=== PATIENT | male | born 1965 | race Caucasian/White ===

== ENCOUNTER 2024-08-19 04:38 | Inpatient (IN) | payer OTHER, SELFPAY ==
[2024-08-18 23:51] VITALS: BP 170/86
[2024-08-19] VITALS (15 sets, daily range): BP systolic 120–150; BP diastolic 65–87; BMI 28.0; BMI 27.5; BMI 29.2
[2024-08-19 00:32] LABS: Urine Albumin Trace (Neg - Trace); Urine Bilirubin Negative (Negative); Urine Character Clear (Clear); Urine Color Amber; Urine Glucose Negative (Negative); Urine Ketone 2+ (Negative); Urine Leukocyte Negative (Negative); Urine Nitrite Negative (Negative); Urine Occult Blood Negative (Negative); Urine Urobilinogen 2+ (Neg - 1+)
[2024-08-19 00:37] LABS: ALT (SGPT) 59 U/L (0-50); AST (SGOT) 43 U/L (17-59); Albumin 4.3 g/dl (3.5-5.0); Alkaline Phosphatase 119 U/L (38-126); Blood Urea Nitrogen 25 mg/dl (9-20); Calcium 9.7 mg/dl (8.4-10.2); Carbon Dioxide 28 mmol/L (22-30); Chloride 94 mmol/L (98-107); Glucose 152 mg/dl (70-99); Potassium 4.8 mmol/L (3.5-5.1); Sodium 132 mmol/L (135-145); Total Bilirubin 2.9 mg/dl (0.2-1.3); Total Protein 7.4 g/dl (6.3-8.2); eGFR > 60.00
[2024-08-19 00:38] LABS: % Basophils 0.2 % (0-2); % Eosinophils 0.1 % (0-6); % Immature Granulocytes 1.5 % (0-0.5); % Lymphocytes 7.9 % (20.5-51.1); % Monocytes 10.7 % (1.7-9.3); % Neutrophils 79.6 % (42.2-75.2); Absolute Immature Granulocytes 0.1 10^3/uL (0-0.05); Absolute Lymphocytes 0.7 10^3/uL (1.2-3.4); Absolute Neutrophils 7.2 10^3/uL (1.4-6.5); Hematocrit 41.4 % (39.0-52.0); Hemoglobin 14.7 g/dL (13.0-18.0); Mean Corp Hgb Conc. 35.5 g/dL (33.0-37.0); Mean Corpuscular Hgb 31.6 pg (27.0-31.0); Nucleated Red Blood Cells % 0 % (-); Platelet Count 124 10^3/uL (130-400); Red Blood Cell Count 4.65 10^6/uL (4.70-6.10); Red Cell Dist. Width 11.8 % (11.5-14.5); White Blood Cell Count 9.1 10^3/uL (4.8-10.8)
[2024-08-19 02:02] LABS: Lipase 46 U/L (23-300)
--- NOTE | 2024-08-19 02:11 | ED.GENMED ---
History of Present Illness
General
Chief Complaint: Abdominal Pain
Source: patient
Exam Limitations: none
Time Seen by Provider: 08/19/24 01:10
History of Present Illness
History of Present Illness:
This is a 59 year old male that comes in with c/o abd pain. States that this started at 8am tonight. States that he tried to make himself vomit but he didn't vomit. States that he had eaten a candy cane and grape juice and then the pain started.
States that he tried Pepto, Yogurt, Lemon juice and nothing helped. States that he was nauseated and has urinary burning. Denies any fever, chills, chest pain, SOB, vomiting, diarrhea, headache, dizziness.
Past History
Past History
ED Past Medical History: Psychiatric (Bipolar, ) and Other (Hep C, Renal calculus, Cirrhosis of the liver)
ED Past Surgical History: None
Social History
Tobacco: Smoker
Alcohol: None
Drug: Other (Amphetamines)
Personal: Single
Living: with family
Review of Systems
Review of Systems
All Other Systems: ROS reviewed and negative except as documented in HPI and ROS
Constitutional: Reports no symptoms; Denies fever or chills
EENT: Reports no symptoms
Respiratory: Reports no symptoms; Denies cough or trouble breathing
Cardiac: Reports no symptoms; Denies chest pain
ABD/GI: Reports abdominal pain and nausea; Denies vomiting or diarrhea
: Reports no symptoms; Denies dysuria or urgency
Musculoskeletal: Reports no symptoms
Skin: Reports no symptoms
Neurological: Reports no symptoms; Denies dizzy or headache
Psychiatric: Reports no symptoms
Phy Exam
General Physical Exam
General Presentation: mild distress
General age: appears stated age
General Skin: warm and dry
General Habitus: normal
General Mental: alert
General Hydration: appears well hydrated
ENT Exam
ENT Exam: TM's normal, pharynx normal and neck supple
Eye Exam
Eye Exam: EOMI
Cardiovascular Exam
Cardiovascular Exam: regular rate/rhythm, no edema, no murmur and normal peripheral pulses
Pulmonary Exam
Pulmonary Exam: lungs clear, no respiratory distress, no rales, chest non tender, no crackles, no rhonchi, no wheezing and no cough
Gastrointestinal Exam
Gastrointestinal Exam: normal bowel sounds, soft, no organomegaly, no pulsatile mass and tender (Right sided, epigastric and mid abd tenderness with palpation)
Musculoskeletal Exam
Musculoskeletal Exam: full ROM and no edema
Skin Exam
Skin Exam: normal color, warm/dry, no rash and no petechia
Psychiatric Exam
Psychiatric Exam: normal mood/affect
Course
Orders/Labs/Results
Orders:
Orders
08/18/24 23:54
Complete Blood Count/With Diff Urgent
Comprehensive Metabolic Panel Urgent
Urinalysis Urgent
Date Specimen was Collected: 08/18/24
Time Specimen was Collected: 23:54
08/19/24 00:03
Lipase Urgent
Comment: ADDED
08/19/24 01:12
Add On- LAB Urgent
Tests Added?: Lipase
08/19/24 01:21
Electrocardiogram (*1) Urgent
Reason for Study: Abdominal Pain
EKG- Treatment ONCE
08/19/24 01:54
Pantoprazole [Protonix IV] 40 mg .ROUTE .STK-MED ONE
Sucralfate Suspension [Carafate Suspension] 1 gm .ROUTE .STK-MED ONE
08/19/24 02:12
CT Abd/pelvis W Iv Cont Urgent
Comment:
Reason For Exam: miD AND RIGHT SIDED ABD PAIN
0.9% Sodium Chloride 1000 ml [Nss] 1,000 ml IV BOLUS
Pantoprazole [Protonix IV] 40 mg IV NOW STA
Sucralfate Suspension [Carafate Suspension] 1 gm PO NOW STA
08/19/24 02:16
Ondansetron Injectable [Zofran] 4 mg IV NOW STA
08/19/24 02:17
Ketorolac [Toradol] 30 mg IV NOW STA
08/19/24 03:04
HYDROmorphone [Dilaudid] 1 mg IV NOW STA
Abnormal Lab Results
08/19/24
00:03
RBC 4.65 L 10^6/uL
(4.70-6.10)
MCH 31.6 H pg
(27.0-31.0)
Plt Count 124 L 10^3/uL
(130-400)
Abs Immat Gran (auto) 0.1 H 10^3/uL
(0-0.05)
Absolute Neuts (auto) 7.2 H 10^3/uL
(1.4-6.5)
Absolute Lymphs (auto) 0.7 L 10^3/uL
(1.2-3.4)
Absolute Monos (auto) 1.0 H 10^3/uL
(0.1-0.6)
Immature Gran % 1.5 H %
(0-0.5)
Neutrophils % 79.6 H %
(42.2-75.2)
Lymphocytes % 7.9 L %
(20.5-51.1)
Monocytes % 10.7 H %
(1.7-9.3)
Sodium 132 L mmol/L
(135-145)
Chloride 94 L mmol/L
(98-107)
BUN 25 H mg/dl
(9-20)
Glucose 152 H mg/dl
(70-99)
Total Bilirubin 2.9 H mg/dl
(0.2-1.3)
ALT 59 H U/L
(0-50)
Urine Ketones 2+ A
(Negative)
Urine Urobilinogen 2+ A
(Neg - 1+)
08/19/24 00:03
08/19/24 00:03
Thrombocytopenia, Sodium slightly low. Chloride low. Dehydration. Hyperglycemia. Total yahaira elevation. AST mildly elevated. Urine negative for infection. Lipase normal at 46,
Vital Signs
Initial and Last Documented VS:
Initial Vital Signs
Temp Pulse Resp BP Pulse Ox
98.7 F 84 26 170/86 100
08/18/24 23:51 08/18/24 23:51 08/18/24 23:51 08/18/24 23:51 08/18/24 23:51
Last Documented Vital Signs
Temp Pulse Resp BP Pulse Ox
98.7 F 88 20 135/80 94
08/18/24 23:51 08/19/24 00:00 08/19/24 00:00 08/19/24 00:57 08/19/24 02:30
Human Resources Training Manager consulted with Physician
Human Resources Training Manager consulted with physician?: Yes
Name of Physician Consulted: Dr. Yoder
MDM/Problems Addressed
Differential Diagnosis Includes:
Gastritis, Renal calculus, Appendicitis, Gallbladder disease
MDM/Problems Addressed:
This is a 59 year old male that comes in with c/o abd pain. States that this started yesterday morning after eating a candy cane and Grape juice.
Will check labs. Urine, CT scan, Give IV fluids and Protonix and Carafate.
Back into see patient. Explained that he would be admitted as he has acute cholecystitis and there is possible Thrombus in the distal portal vein. Dr. Holland and Hospitalist notified. Will put Dr. Holland on consult.
Chronic conditions affecting care:
NA
Acute Exacerbation and/or Progression of Chronic Illness:
NA
*Radiology
Radiology exam reviewed: radiology read reviewed (CT night hawk=Findings compatible with acute cholecystitis, with wall thickening and pericholecystic fluid. Additional likely filling defect within the distal portal vein with Extension into the
bilateral main branches, concerning for thrombosis. Tubular filling defect within segment 8, may ), all reviewed NAD by ED Provider (CT cont- may represent additional site of portal vein thrombosis. with areas of abnormal enhancement, which may be
perfusional, but recommend further workup to exclude underlying mass and attention on follow-up. No bowel obstruction. Normal appendix. NO obstructive uropathy. Cirrhotic appearing) and other (CT cont- Cirrhotic appearing liver. No abdominal aortic
aneurysm. No acute osseous abnormality. No acute abnormality within the visualized lungs. No acute abnormality within the visualized soft tissues. )
*Pulse Oximetry
Patient hypoxic: no
*EKG
Interpreted by ED Provider?: Yes
Heart Rate: 75
Rate: normal
Rhythm: sinus
[place]: normal axis
Interval: normal interval
QRS Pattern: normal QRS
Ischemia: no ischemia
*Subsystems Engineer Interpretation
Rate: Subsystems Engineer- N/A
*Critical Care Note
Total Time (30-74mins, 75-104mins- exclusive of procedures): Not Applicable
ED Attending Note
-
Portions of this chart may have been created with voice recognition software.� Occasional wrong word or��sound alike� substitutions may have occurred due to the inherent limitations of voice recognition software.
Discharge Plan
Departure
Patient Disposition: Admit
Date of Disposition: 08/19/24
Time of Disposition: 03:22
Admit to: Med/Surg
Presentation/result/management discussed w/ accepting MD/DO: Hospitalist
Patient with high blood pressure during this ER visit?: Yes
Condition: Good
Covid-19: Not Applicable
Discharge Problem:
Acute cholecystitis, Portal vein thrombosis
Prescriptions:
No Action
tamsulosin 0.4 MG capsule
0.4 mg PO DAILY Qty: 14 0RF
Referrals:
Constantin Cunningham MD [Family Provider] -
Interventions
Interventions:
*Risk Screen - Suicide Last Done: 08/18/24 23:51
*General Assessment Last Done: 08/19/24 02:42
*Neglect/Abuse Screening Last Done: 08/18/24 23:51
ED- Fall Risk Assessment Last Done: 08/19/24 01:01
*ED COVID-19 Vaccine History Last Done: 08/19/24 02:42
IT-Gcauhj-Hwcfxvwous Assessment Last Done: 08/19/24 01:01
Discharge Date and Time
Print Language: WALLISIAN
[2024-08-19] MEDS: PROTONIX IV 40 MG IV ×2 (02:20→20:06)
[2024-08-19] MEDS: TORADOL 30 MG IV (02:20)
[2024-08-19] MEDS: NSS 1000 IV ×2 (02:20→07:51)
[2024-08-19] MEDS: ZOFRAN 4 MG IV (02:20)
[2024-08-19] MEDS: CARAFATE SUSPENSION 1 GM PO (02:20)
--- NOTE | 2024-08-19 04:29 | HPS.HSE ---
Family Physician
-
Family Physician: Constantin Cunningham
Chief Complaint
-
Abd Pain
History of Present Illness
Patient is a 59y M with PMH significant for Hep C / cirrhosis who presents to ED complaining of abdominal pain. Patient states that he woke early Sunday AM with epigastric abdominal pain. That pain has persisted throughout the past 24 hours
with no improvement. He states that he attempted to induce emesis, took Pepto Bismol / probiotics and ate some yogurt - none of which improved his pain. He had nausea but no emesis. No diarrhea / bloody stools / etc. No fevers / chills. Patient
presented to the ED this evening for further evaluation and treatment.
Patient states that he was diagnosed with cirrhosis several years ago. He was told he would likely require a liver transplant at that time. He notes that he 'changed my lifestyle' and took milk thistle and has not followed up.
He has a history of Hep C s/p treatment ('I took a pill for 30 days') - about 12-14 years ago.
He has a history of drug abuse including remote h/o IVDA.
He was most recently using 'speed' habitually until about 2 weeks ago.
Medical History
Past Medical History
Past Medical History: Reports Other
Additional Past Medical History:
Hep C s/p Treatment
Cirrhosis
Multiple Injuries / Traumas
Past Surgical History: Reports Other
Additional Past Surgical History:
Facial Reconstruction
RLE Surgery
Social History
Tobacco: Smoker (Current every day smoker. Appox 30 pack years total use.)
Alcohol: Occasional (States that he still has 'one or two beers every once in a while'.)
Drug: Other (Remote h/o IVDA - none in approx 15-20 years. Most recently used amphetamines / 'speed' - stopped 2 weeks ago.)
Family History
Family History: Not pertinent
Allergies / Home Medications
Allergies reflects when Allergies were last updated in [facility].
Home Medications with original date entered in [facility]
Allergy/Medication List:
Allergies
Allergy/AdvReac Type Severity Reaction Status Date / Time
No Known Allergies Allergy Verified 08/18/24 23:54
Home Medications
No Meds [No Current Medications] 08/19/24
Review of Systems
-
History Source: Patient
A 12 point ROS was completed and negative except as noted: Yes
Constitutional: Denies Fever or Chills
EENT: Reports Other (Bad teeth.)
Respiratory: Denies Cough or Trouble Breathing
Cardiac: Denies Chest Pain or Palpitations
Abdomen/GI: Reports Abdominal Pain and Nausea; Denies Vomiting, Diarrhea, Constipated, Bloody Stools, Black Stools or Anorexia
: Denies Dysuria, Frequency or Flank Pain
Neurological: Denies Dizzy or Headache
Psych: Denies Depression or Anxiety
Physical Exam
Vital Signs
Vital Signs
Temp Pulse Resp BP Pulse Ox
98.7 F 88 20 135/80 94
08/18/24 23:51 08/19/24 00:00 08/19/24 00:00 08/19/24 00:57 08/19/24 02:30
Physical Exam
General: Other (59y M in no acute distress.)
HEENT: Moist mucous membranes and Other (Poor dentition.)
Respiratory: Clear; No Wheezes, Rales or Rhonchi
Cardiac: S1/S2 and Regular Rhythm; No Murmur
GI: Soft, Non Distended, Normal Bowel Sounds and Other (RUQ tenderness with voluntary guarding.)
Musculoskeletal: No Clubbing, No Cyanosis and No Edema
Neuro: AO x 3
Laboratory Results
-
08/19/24 00:03
08/19/24 00:03
Laboratory Results
Total Bilirubin 2.9 mg/dl (0.2-1.3) H 08/19/24 00:03
AST 43 U/L (17-59) 08/19/24 00:03
ALT 59 U/L (0-50) H 08/19/24 00:03
Alkaline Phosphatase 119 U/L (38-126) 08/19/24 00:03
Lipase 46 U/L (23-300) 08/19/24 00:03
Impression/Plan
-
A/P: Patient is a 59y M with PMH significant for Hep C and cirrhosis who presents to ED complaining of abdominal pain.
Abdominal Pain
- Admit for further evaluation and treatment.
- Etiology of abdominal pain is somewhat unclear at this time.
- Differential includes acute calculous cholecystitis versus portal vein thrombosis versus both.
- Treat individual issues as noted below.
- Supportive care with NPO, IVFs, pain control, etc.
Acute Calculous Cholecystitis
- Large gallstone that has been present x years and is known to patient.
- Seen here on CT in 2020.
- Now with wall thickening and pericholecystic fluid.
- NPO, IVFs, IV abx with Zosyn.
- Surgery evaluation for possible cholecystectomy.
History of Hep C s/p Treatment
Cirrhosis with Thrombocytopenia
Portal Vein Thrombosis
- Long history of cirrhosis that he essentially elected not to follow up.
- CT done today with evidence of filling defect c/w portal vein thrombosis.
- Potentially inflammatory response due to acute cholecystitis; however, pre-existing cirrhosis makes this somewhat less likely.
- GI evaluation for additional recommendations.
- Will hold on initiation of therapeutic dose anticoagulation for now pending GI eval +/- EGD (r/o varices), surgical plan for cholecystitis, etc.
- IV PPI BID.
- Encourage complete cessation of alcohol - as well as other illicit substances.
Polysubstance Use Disorder
- Patient reports prior h/o IVDA / cocaine / etc.
- Most recently used 'speed' - states last use was about 2 weeks ago.
- Check UDS (already received Dilaudid here).
- Encourage complete cessation of illicit substance use.
DVT Prophylaxis: Prophylactic dose Lovenox pending decision regarding therapeutic anticoagulation.
Code Status: Full
[2024-08-19] MEDS: ZOSYN 50 IV ×3 (07:48→20:07)
[2024-08-19] MEDS: TORADOL 15 MG IV (08:38)
--- NOTE | 2024-08-19 09:59 | W.PN.HOSP.TC ---
Today's Communication/Plan
-
59y M with PMH significant for Hep C and cirrhosis who presents to ED complaining of abdominal pain.
1. Abdominal Pain - improved with pain meds
- Continue to monitor for further evaluation and treatment.
- Etiology of abdominal pain is unclear at this time.
- Differential includes acute calculous cholecystitis versus portal vein thrombosis versus both.
- Treat individual issues as noted below.
- Supportive care with NPO, IVFs, pain control
2. Acute Calculous Cholecystitis
- Large gallstone that has been present x years and is known to patient.
- Seen here on CT in 2019.
- Now with wall thickening and pericholecystic fluid.
- NPO, IVFs, IV abx with Zosyn.
- Surgery evaluation requested for possible cholecystectomy.
3. History of Hep C s/p Treatment, with Cirrhosis with Thrombocytopenia, now with probable Portal Vein Thrombosis
- Long history of cirrhosis that he elected not to follow up.
- CT done today with evidence of filling defect c/w portal vein thrombosis.
- Potentially inflammatory response due to acute cholecystitis; however, pre-existing cirrhosis makes this unclear.
- GI evaluation for additional recommendations.
- Will hold on initiation of therapeutic dose anticoagulation for now pending GI eval +/- EGD (r/o varices), surgical plan for cholecystitis, etc.
- IV PPI BID.
- again Encourage complete cessation of alcohol - as well as other illicit substances.
4. Polysubstance Use Disorder
- Patient reports prior h/o IVDA / cocaine / others.
- Most recently used 'speed' - states last use was about 2 weeks ago.
- Check UDS (already received Dilaudid here). pending
- Encourage complete cessation of illicit substance use.
DVT Prophylaxis: Prophylactic dose Lovenox pending decision regarding therapeutic anticoagulation. SCD for now
Code Status: Full
Assessment / Plan
Assessment / Plan
59y M with PMH significant for Hep C and cirrhosis who presents to ED complaining of abdominal pain.
1. Abdominal Pain - improved with pain meds
- Continue to monitor for further evaluation and treatment.
- Etiology of abdominal pain is unclear at this time.
- Differential includes acute calculous cholecystitis versus portal vein thrombosis versus both.
- Treat individual issues as noted below.
- Supportive care with NPO, IVFs, pain control
2. Acute Calculous Cholecystitis
- Large gallstone that has been present x years and is known to patient.
- Seen here on CT in 2019.
- Now with wall thickening and pericholecystic fluid.
- NPO, IVFs, IV abx with Zosyn.
- Surgery evaluation requested for possible cholecystectomy.
3. History of Hep C s/p Treatment, with Cirrhosis with Thrombocytopenia, now with probable Portal Vein Thrombosis
- Long history of cirrhosis that he elected not to follow up.
- CT done today with evidence of filling defect c/w portal vein thrombosis.
- Potentially inflammatory response due to acute cholecystitis; however, pre-existing cirrhosis makes this unclear.
- GI evaluation for additional recommendations.
- Will hold on initiation of therapeutic dose anticoagulation for now pending GI eval +/- EGD (r/o varices), surgical plan for cholecystitis, etc.
- IV PPI BID.
- again Encourage complete cessation of alcohol - as well as other illicit substances.
4. Polysubstance Use Disorder
- Patient reports prior h/o IVDA / cocaine / others.
- Most recently used 'speed' - states last use was about 2 weeks ago.
- Check UDS (already received Dilaudid here). pending
- Encourage complete cessation of illicit substance use.
DVT Prophylaxis: Prophylactic dose Lovenox pending decision regarding therapeutic anticoagulation. SCD for now
Code Status: Full
Anticipated Discharge: > 48 hours
Subjective/Interval History
-
Date of Service: August 19, 2024
Feels well. No current complaints.
Objective Data
-
Labs:
Laboratory Results
08/19/24 08/19/24
00:03 07:03
WBC 9.1
Hgb 14.7
Hct 41.4
Plt Count 124 L
PT Pending
INR Pending
APTT Pending
Sodium 132 L
Potassium 4.8
Chloride 94 L
Carbon Dioxide 28
BUN 25 H
Creatinine 0.9
Glucose 152 H
Calcium 9.7
Total Bilirubin 2.9 H
AST 43
ALT 59 H
Alkaline Phosphatase 119
Vital Signs:
Vital Signs
Temp Pulse Resp BP Pulse Ox
98.3 F 69 17 138/79 96
08/19/24 07:05 08/19/24 07:45 08/19/24 07:45 08/19/24 07:05 08/19/24 07:45
Review of Systems
-
History Source: Patient
All other systems: Reviewed and negative
Physical Exam
-
General: Well Developed, Well Nourished, No Apparent Distress, Comfortable and Conversant
HEENT: Normocephalic, Atraumatic, Nose Appears Normal and Ears Appear Normal; Negative Good Dentition
Respiratory: Clear to Auscultation
Cardiac: Regular Rhythm and S1/S2
GI: Soft, Nontender and Nondistended
Musculoskeletal: No Clubbing, No Cyanosis and No Edema
Skin: Warm and Dry; Negative Rash
Neuro: Awake, Alert, Oriented and AO x 3
Psych: Calm
Data Reviewed
-
Labs: Labs Reviewed by me
[2024-08-19 11:30] LABS: INR 1.07; PT 14.4 Sec (11.4-14.6)
[2024-08-19 11:32] LABS: APTT 34.4 Sec (23.4-35.0)
[2024-08-19 11:38] LABS: Albumin 3.7 g/dl (3.5-5.0)
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
--- NOTE | 2024-08-19 12:58 | CON.GS ---
Medical History
-
Chief Complaint: Abdominal pain
History of Present Illness:
Patient is a 59 yo M with a PMH of IVDA, alcoholic and hep C cirrhosis s/p treatment about 14 years ago and s/p facial reconstruction who presents to the ER with abdominal discomfort. Mr. Ruelas states that his symptoms began acutely yesterday
morning shortly after having grapefruit juice. Denies any prior attacks of similar abdominal pain or discomfort. His pain is located mostly within the epigastrium and RUQ. No nausea or vomiting. No fevers or chills. Denies any fluctuations from
a GI standpoint. He denies any tea colored urine or pale stools. Mild jaundice noticed. Currently he states that his pain is improved.
Past Medical History
Past Medical History: Other (Alcoholic and hepatitis C cirrhosis, nephrolithiasis)
Past Surgical History: Other (Facial reconstruction, RLE debridement)
Social History
Tobacco: Smoker
Alcohol: Daily
Drug: Marijuana, Cocaine and IVDA
Family History
Family History: Other (Father and sister gastric cancer)
Allergies / Home Medications
Allergy/AdvReac Type Severity Reaction Status Date / Time
No Known Allergies Allergy Verified 08/18/24 23:54
�Medication �Instructions �Recorded �Confirmed �Type
No Meds [No Current Medications] 08/19/24 08/19/24 History
Review of Systems
-
A 10 point review of systems was completed, and was negative except as per HPI.
Physical Exam
Vital Signs
Temp Pulse Resp BP Pulse Ox
98 F 78 20 143/86 95
08/19/24 11:00 08/19/24 11:00 08/19/24 11:00 08/19/24 11:01 08/19/24 11:00
08/18/24 08/19/24 08/20/24
06:59 06:59 06:59
Actual Weight 85.9 kg
Body Mass Index (BMI) 28.0
Lab Results
08/19/24 00:03
08/19/24 00:03
WBC 9.1 10^3/uL (4.8-10.8) 08/19/24 00:03
Hgb 14.7 g/dL (13.0-18.0) 08/19/24 00:03
Hct 41.4 % (39.0-52.0) 08/19/24 00:03
Plt Count 124 10^3/uL (130-400) L 08/19/24 00:03
Abs Immat Gran (auto) 0.1 10^3/uL (0-0.05) H 08/19/24 00:03
Neutrophils % 79.6 % (42.2-75.2) H 08/19/24 00:03
Physical Exam
General: Well Developed, Well Nourished and No Apparent Distress
HEENT: Scleral Icterus
Respiratory: Rales and Non Labored Respirations
Cardiac: Regular Rhythm
GI: Soft, Non Tender, Distended and Other (Palpable hepatomegaly)
Musculoskeletal: No Edema
Skin: Warm, Dry and Jaundice
Data Reviewed
-
CT Scan: Image Personally Visualized and interpreted and Report Reviewed by me
Labs: Labs Reviewed by me
Assessment / Plan
-
Patient is a 59 yo M p/w upper abdominal pain.
Differential includes symptomatic cholelithiasis versus acute on chronic cirrhosis with portal venous thrombus. No clear history of abdominal pain associated with fatty foods. Currently symptoms have improved - recommend trial of dietary tolerance
with outpatient management. No plans at any point in time to undergo cholecystectomy at this institution given his advanced cirrhosis as well as possible liver mass adjacent to the gallbladder. We discussed further workup of his liver mass to
include labs and potential biopsy (of note, during this time he states that he refuses any further workup). Recommend outpatient follow-up with a GI and liver transplant center. All questions answered.
-- No plans at any time for cholecystectomy at given advanced liver disease and mass just posterior to GB
-- LFD, if issues with tolerance would transfer to tertiary care center, if tolerates outpatient follow-up with tertiary care center
-- GI consult noted: further work-up and management of cirrhosis and liver mass per GI
-- Please call with any questions or concerns
[2024-08-19 13:43] LABS: Amphetamines Positive (Negative); Barbiturates Negative (Negative); Benzodiazepines Negative (Negative); Buprenorphine Negative (Negative); Cocaine Negative (Negative); Marijuana Positive (Negative); Methadone Negative (Negative); Methamphetamines Positive (Negative); Opiates Negative (Negative); Phencyclidine Negative (Negative)
[2024-08-19 13:44] LABS: Tricyclic Antidepressants Negative (Negative)
[2024-08-19 14:08] LABS: Fentanyl, Urine Negative (Negative)
[2024-08-19] MEDS: LOVENOX 40 MG SC (17:46)
[2024-08-19] MEDS: DILAUDID 0.5 MG IV (17:49)
[2024-08-19 19:49] LABS: Hepatitis C Antibody Reactive (Negative)
[2024-08-19] MEDS: NSS (PRESERVATIVE FREE) 10 ML IV (20:06)
[2024-08-19 20:18] LABS: AFP Male/Tumor Marker 1810 ng/ml
--- NOTE | 2024-08-20 00:14 | PTCARENOTE ---
2200 pt requesting to take shower. OK per RAFITA Kurtz, but must be supervised, ok to come off tele for shower only. PCT stayed in bathroom while pt showered.
[2024-08-20] MEDS: ZOSYN 50 IV ×4 (03:02→19:33)
[2024-08-20 03:20] VITALS: BP 143/85
[2024-08-20] MEDS: NSS 1000 IV ×2 (06:00→17:25)
[2024-08-20 06:43] LABS: Hematocrit 37.7 % (39.0-52.0); Hemoglobin 13.4 g/dL (13.0-18.0); Mean Corp Hgb Conc. 35.5 g/dL (33.0-37.0); Mean Corpuscular Hgb 31.8 pg (27.0-31.0); Mean Corpuscular Volume 89.5 fL (80.0-94.0); Mean Platelet Volume 10.1 fL (7.4-10.4); Platelet Count 105 10^3/uL (130-400); Red Blood Cell Count 4.21 10^6/uL (4.70-6.10); Red Cell Dist. Width 11.9 % (11.5-14.5); White Blood Cell Count 4.9 10^3/uL (4.8-10.8)
[2024-08-20 07:00] VITALS: BP 131/80
[2024-08-20 07:03] LABS: INR 1.13; PT 15.1 Sec (11.4-14.6)
[2024-08-20 07:08] LABS: ALT (SGPT) 39 U/L (0-50); AST (SGOT) 32 U/L (17-59); Albumin 3.5 g/dl (3.5-5.0); Alkaline Phosphatase 97 U/L (38-126); Blood Urea Nitrogen 23 mg/dl (9-20); Calcium 8.6 mg/dl (8.4-10.2); Carbon Dioxide 25 mmol/L (22-30); Chloride 99 mmol/L (98-107); Estimated Creatinine Clearance 62 ml/min; Glucose 93 mg/dl (70-99); Sodium 134 mmol/L (135-145); Total Bilirubin 2.8 mg/dl (0.2-1.3); Total Protein 6.4 g/dl (6.3-8.2); eGFR > 60.00
[2024-08-20] MEDS: NSS (PRESERVATIVE FREE) 10 ML IV (07:41)
[2024-08-20] MEDS: PROTONIX IV 40 MG IV (07:41)
[2024-08-20 11:00] VITALS: BP 137/83
--- NOTE | 2024-08-20 13:09 | W.PN.GI.CBS2 ---
Today's Communication / Plan
-
-- med onc evaluation
-- discussed case with hepatology, Dr. Philip at [place] Today
-- low fat diet
Assessment / Plan
-
Adán is a 59-year-old male with history of hep C with questionable SVR/IV drug abuse, untreated bipolar disease who has not seen a physician in over 10 years and is not on any prescriptions outpatient who comes in for persistent right upper
quadrant pain that radiated into his back with imaging concerning for cholecystitis with normal ALT AST with elevated total bilirubin of 2.8 found to have a large likely HCC lesion in the right anterior hepatic lobe with surrounding portal vein
thrombosis and an enlarged lymph node with a high AFP who is currently asymptomatic and hungry
1. Suspected HCC lesion in the setting of cirrhosis and high AFP with surrounding portal vein thrombosis
--Medical oncology evaluation
-- I did speak to Dr. Philip, transplant hepatology at [facility] who will present him to tumor board next week
-- Tumor thrombus does not need treatment with anticoagulation
-- DVT prophylaxis
2. Suspected acute cholecystitis
-- Patient seen by general surgery who suggested low-fat diet. Which I ordered
-- Patient is relatively asymptomatic. Only tender with deep palpation
-- Per surgery's note if he needed surgery it would need to go to an academic center in the setting of his cirrhosis and large hepatic mass
-- Unclear what to do with the antibiotics at this point. Would reach out to surgery
-- He did not have a leukocytosis and his LFTs are normal other than his total bilirubin which I ordered a direct for for tomorrow.
Subjective
Subjective
Date of Service: August 20, 2024
Patient is hungry and denies any abdominal pain. No nausea vomiting heartburn.
Difficult to get answers from him
Objective
Data Reviewed
Laboratory Data:
Laboratory Results
08/20/24 06:04
08/20/24 06:04
Laboratory Results
PT 15.1 Sec (11.4-14.6) H 08/20/24 06:04
INR 1.13 08/20/24 06:04
APTT 34.4 Sec (23.4-35.0) 08/19/24 11:06
Total Bilirubin 2.8 mg/dl (0.2-1.3) H 08/20/24 06:04
AST 32 U/L (17-59) 08/20/24 06:04
ALT 39 U/L (0-50) 08/20/24 06:04
Alkaline Phosphatase 97 U/L (38-126) 08/20/24 06:04
Lipase 46 U/L (23-300) 08/19/24 00:03
Vital Signs and I&O:
Vital Signs
Temp Pulse Resp BP Pulse Ox
98.5 F 70 18 137/83 94
08/20/24 11:00 08/20/24 11:00 08/20/24 11:00 08/20/24 11:00 08/20/24 11:00
I&O
08/19/24 08/20/24 08/21/24
06:59 06:59 06:59
Intake Total 2240 / 2240 50 / 50
Output Total 500 / 500
Balance 1740 / 1740 50 / 50
Physical Exam
Physical Exam
HEENT: Anicteric
GI: Soft and Tender (Mildly tender in the right upper quadrant)
Extremities: No Edema
Neuro: Non Focal
[2024-08-20 14:47] VITALS: BP 138/81
--- NOTE | 2024-08-20 15:03 | W.PN.HOSP.TC ---
Today's Communication/Plan
-
Tolerating a diet. Oncology consult tomorrow.
Assessment / Plan
Assessment / Plan
59y M with PMH significant for Hep C and cirrhosis who presents to ED complaining of abdominal pain.
1. Abdominal Pain - improved with pain meds initially, much better today
- Etiology of abdominal pain is likely cancer. MRI report:
Cirrhotic morphology. There is a large, infiltrative heterogeneous mass involving the anterior right hepatic lobe favored to represent infiltrative HCC.
There is tumor thrombus within the distal main portal vein extending into the left portal vein where it appears occlusive as well as the right main portal vein.
Findings of acute cholecystitis with a large gallstone in the gallbladder neck. There is no evidence of choledocholithiasis.
Prominent upper abdominal lymph nodes with the largest being a 1.3 cm portacaval lymph node.
These may be reactive to the above-described acute cholecystitis, though malignant nodes cannot be excluded.
- Oncology consult requested. GI following.
- Supportive care in meantime.
2. Possible Acute Calculous Cholecystitis, but more likely this pain is from cancer.
- Large gallstone that has been present x years and is known to patient.
- Seen here on CT in 2020.
- Now with wall thickening and pericholecystic fluid.
- See above issue with tumor.
3. History of Hep C s/p Treatment, with Cirrhosis with Thrombocytopenia, now with probable Portal Vein Thrombosis
- Long history of cirrhosis that he elected not to follow up.
- CT done today with evidence of filling defect c/w portal vein thrombosis.
- IV PPI BID.
- again Encourage complete cessation of alcohol - as well as other illicit substances.
4. Polysubstance Use Disorder
- Patient reports prior h/o IVDA / cocaine / others.
- Most recently used 'speed' - states last use was about 2 weeks ago.
- Check UDS (already received Dilaudid here). pending
- Encourage complete cessation of illicit substance use.
DVT Prophylaxis: Prophylactic dose Lovenox pending decision regarding therapeutic anticoagulation. SCD for now
Code Status: Full
Anticipated Discharge: > 48 hours
Subjective/Interval History
-
Date of Service: August 20, 2024
Feels well. Tolerating a diet.
Objective Data
-
Labs:
Laboratory Results
08/20/24
06:04
WBC 4.9
Hgb 13.4
Hct 37.7 L
Plt Count 105 L
PT 15.1 H
INR 1.13
Sodium 134 L
Potassium 4.0
Chloride 99
Carbon Dioxide 25
BUN 23 H
Creatinine 1.2
Glucose 93
Calcium 8.6
Total Bilirubin 2.8 H
AST 32
ALT 39
Alkaline Phosphatase 97
Vital Signs:
Vital Signs
Temp Pulse Resp BP Pulse Ox
98.6 F 77 16 138/81 96
08/20/24 14:47 08/20/24 14:47 08/20/24 14:47 08/20/24 14:47 08/20/24 14:47
I&O
08/19/24 08/20/24 08/21/24
06:59 06:59 06:59
Intake Total 2240 / 2240 100 / 100
Output Total 500 / 500
Balance 1740 / 1740 100 / 100
Review of Systems
-
History Source: Patient
All other systems: Reviewed and negative
Abdomen/GI: Reports Abdominal Pain
Physical Exam
-
General: Well Developed, Well Nourished, No Apparent Distress and Comfortable
HEENT: Normocephalic, Atraumatic and Moist Mucous Membranes; Negative Good Dentition
Respiratory: Clear to Auscultation
Cardiac: Regular Rhythm and S1/S2
GI: Soft, Nondistended and Tender
Musculoskeletal: No Clubbing, No Cyanosis and No Edema
Skin: Warm and Dry; Negative Rash
Neuro: Awake, Alert, Oriented and AO x 3
Psych: Calm
Data Reviewed
-
Labs: Labs Reviewed by me
[2024-08-20] MEDS: NSS IV (15:12)
[2024-08-20] MEDS: LOVENOX 40 MG SC (17:22)
[2024-08-20 19:15] VITALS: BP 142/77
[2024-08-20 23:05] VITALS: BP 135/73
[2024-08-21] MEDS: ZOSYN 50 IV ×3 (02:14→14:22)
[2024-08-21 03:55] VITALS: BP 123/77
[2024-08-21] MEDS: NSS 1000 IV (04:58)
[2024-08-21 07:24] VITALS: BP 145/81
[2024-08-21] MEDS: PROTONIX 40 MG PO (07:53)
[2024-08-21 08:04] LABS: Hematocrit 37.6 % (39.0-52.0); Hemoglobin 13.6 g/dL (13.0-18.0); Mean Corp Hgb Conc. 36.2 g/dL (33.0-37.0); Mean Corpuscular Hgb 31.8 pg (27.0-31.0); Mean Corpuscular Volume 87.9 fL (80.0-94.0); Mean Platelet Volume 9.4 fL (7.4-10.4); Platelet Count 116 10^3/uL (130-400); Red Blood Cell Count 4.28 10^6/uL (4.70-6.10); Red Cell Dist. Width 11.5 % (11.5-14.5)
--- NOTE | 2024-08-21 08:43 | CON.ONC ---
Impression
Impression
p/w acute epigastric abdominal pain
possilbe HCC
possible acute cholecystitis
Hepatitis C
cirrhosis
polysubstance abuse
Plan
Plan
GI and surgery following
f/u AFP, MRI, MRCP
f/u Hepatitis C viral load
refusing EGD, colonoscopy
on PPI
on Zosyn
antiemetics and pain management
to consider anticoagulation for pvt, although chronicity unknown. Would hold off on AC for now while interventions being considered. Varices unknown so may have increased bleeding risk. Agree with DVT ppx for now.
Patient History
History of Present Illness
59yo M with PMH significant for Hep C cirrhosis who presented to the ER with abdominal pain that radiated to his back. His pain onset was Sunday and described as epigastric abdominal pain. Abdominal pain was constant and persistent and did not
respond to home remidies which prompted him to seek further evaluation. He reports that he took a pill for his hepatitis C, however, declined interferon then and has not seen a medical provider in >[address] showed possible acute cholecystitis,
possible HCC, and portal vein thrombosis.
Clinically, he denies dysphagia, heartburn, unintentional weight loss. He denies any overt bleeding. Denies prior colonoscopy.
Past-Medical/Surgical History
PMH Hep C, cirrhosis, kidney stones
H RLE surgery, facial reconstruction
Social former IVDA, recent use of amphetamines, marijuana, cocaine. Current daily smoker. Occational ETOH.
Family father and sister gastric cancer
Patient Medication
�Medication �Instructions �Recorded �Confirmed �Last Taken �Type
No Meds [No Current Medications] 08/19/24 08/19/24 Unknown History
Active Medications
Generic Name Dose Route Start Last Admin
Trade Name Freq PRN Reason Stop Dose Admin
Enoxaparin Sodium 40 mg 08/19/24 18:00 08/20/24 17:22
Enoxaparin Sodium 40 Mg/0.4 Ml Syringe SC 09/16/24 17:59 40 mg
QPM MOY Administration
Hydromorphone HCl 0.5 mg 08/19/24 07:03 08/19/24 17:49
Hydromorphone 0.5 Mg/0.5 Ml Syringe IV 09/02/24 07:02 0.5 mg
Q4HPRN PRN Administration
Severe Pain
Piperacillin Sod/Tazobactam Sod 3.375 gram in 50 mls @ 100 mls/hr 08/19/24 08:00 08/21/24 07:53
Zosyn IV 50 mls
Q6H MOY Administration
Ketorolac Tromethamine 15 mg 08/19/24 08:30 08/19/24 08:38
Ketorolac 15 Mg/Ml Injection IV 08/24/24 08:29 15 mg
Q6HPRN PRN Administration
Moderate Pain
Ondansetron HCl 4 mg 08/19/24 08:30
Ondansetron 4 Mg/2 Ml Vial IV 09/16/24 08:29
Q6HPRN PRN
nausea and vomiting
Pantoprazole Sodium 40 mg 08/21/24 08:00 08/21/24 07:53
Pantoprazole 40 Mg Delayed Release Tablet PO 09/18/24 07:59 40 mg
DAILY MOY Administration
Sodium Chloride 0 flush 08/19/24 08:00
Sodium Chloride 0.9% (Flush) Syringe IV 09/16/24 07:59
PER PROTOCOL MOY
Review of Systems
-
ROS notable for HPI, otherwise negative
Physical Exam
-
General: No Apparent Distress
HEENT: Moist Mucous Membranes and Other (poor dentition); Negative Jaundice
Cardiology: Normal Sinus Rhythm
Pulmonary: Clear
GI: Soft and Other (RUQ TTP)
Extremities: Pulses Present; Negative Edema
Neurology: Non Focal
Skin: Warm
Psych: Calm
Labs
Lab Results
WBC 5.0 10^3/uL (4.8-10.8) 08/21/24 07:50
RBC 4.28 10^6/uL (4.70-6.10) L 08/21/24 07:50
Hgb 13.6 g/dL (13.0-18.0) 08/21/24 07:50
Hct 37.6 % (39.0-52.0) L 08/21/24 07:50
MCV 87.9 fL (80.0-94.0) 08/21/24 07:50
MCH 31.8 pg (27.0-31.0) H 08/21/24 07:50
MCHC 36.2 g/dL (33.0-37.0) 08/21/24 07:50
RDW 11.5 % (11.5-14.5) 08/21/24 07:50
Plt Count 116 10^3/uL (130-400) L 08/21/24 07:50
MPV 9.4 fL (7.4-10.4) 08/21/24 07:50
Abs Immat Gran (auto) 0.1 10^3/uL (0-0.05) H 08/19/24 00:03
Absolute Neuts (auto) 7.2 10^3/uL (1.4-6.5) H 08/19/24 00:03
Absolute Lymphs (auto) 0.7 10^3/uL (1.2-3.4) L 08/19/24 00:03
Absolute Monos (auto) 1.0 10^3/uL (0.1-0.6) H 08/19/24 00:03
Absolute Eos (auto) 0.0 10^3/uL (0-0.7) 08/19/24 00:03
Absolute Basos (auto) 0.0 10^3/uL (0-0.2) 08/19/24 00:03
Immature Gran % 1.5 % (0-0.5) H 08/19/24 00:03
Neutrophils % 79.6 % (42.2-75.2) H 08/19/24 00:03
Lymphocytes % 7.9 % (20.5-51.1) L 08/19/24 00:03
Monocytes % 10.7 % (1.7-9.3) H 08/19/24 00:03
Eosinophils % 0.1 % (0-6) 08/19/24 00:03
Basophils % 0.2 % (0-2) 08/19/24 00:03
Creatinine 1.2 mg/dL (0.7-1.3) 08/20/24 06:04
Vital Signs
Vital Signs
Temp Pulse Resp BP Pulse Ox
99.0 F 82 16 145/81 98
08/21/24 07:24 08/21/24 07:24 08/21/24 07:24 08/21/24 07:24 08/21/24 07:24
[2024-08-21 09:13] LABS: ALT (SGPT) 47 U/L (0-50); AST (SGOT) 41 U/L (17-59); Albumin 3.4 g/dl (3.5-5.0); Alkaline Phosphatase 142 U/L (38-126); Blood Urea Nitrogen 18 mg/dl (9-20); Calcium 8.5 mg/dl (8.4-10.2); Carbon Dioxide 27 mmol/L (22-30); Chloride 100 mmol/L (98-107); Direct Bilirubin 0.9 mg/dl (0.0-0.4); Estimated Creatinine Clearance 62 ml/min; Glucose 124 mg/dl (70-99); Potassium 4.1 mmol/L (3.5-5.1); Sodium 136 mmol/L (135-145); Total Bilirubin 2.5 mg/dl (0.2-1.3); Total Protein 6.3 g/dl (6.3-8.2); eGFR > 60.00
[2024-08-21 11:15] VITALS: BP 128/70
--- NOTE | 2024-08-21 14:05 | W.PN.HOSP.TC ---
Today's Communication/Plan
-
Discharge home today
Assessment / Plan
Assessment / Plan
59y M with PMH significant for Hep C and cirrhosis who presents to ED complaining of abdominal pain.
1. Abdominal Pain - improved with pain meds initially, much better today
- Etiology of abdominal pain is likely cancer. MRI report:
Cirrhotic morphology. There is a large, infiltrative heterogeneous mass involving the anterior right hepatic lobe favored to represent infiltrative HCC.
There is tumor thrombus within the distal main portal vein extending into the left portal vein where it appears occlusive as well as the right main portal vein.
Findings of acute cholecystitis with a large gallstone in the gallbladder neck. There is no evidence of choledocholithiasis.
Prominent upper abdominal lymph nodes with the largest being a 1.3 cm portacaval lymph node.
These may be reactive to the above-described acute cholecystitis, though malignant nodes cannot be excluded.
-Appreciate GI/oncology input
2. Possible Acute Calculous Cholecystitis, but more likely this pain is from cancer.
- Large gallstone that has been present x years and is known to patient.
- Seen here on CT in 2020.
- Now with wall thickening and pericholecystic fluid.
- See above issue with tumor.
3. History of Hep C s/p Treatment, with Cirrhosis with Thrombocytopenia, now with probable Portal Vein Thrombosis
- Long history of cirrhosis that he elected not to follow up.
- CT done today with evidence of filling defect c/w portal vein thrombosis.
- IV PPI BID.
- again Encourage complete cessation of alcohol - as well as other illicit substances.
4. Polysubstance Use Disorder
- Patient reports prior h/o IVDA / cocaine / others.
- Most recently used 'speed' - states last use was about 2 weeks ago.
- Check UDS (already received Dilaudid here). pending
- Encourage complete cessation of illicit substance use.
DVT Prophylaxis: Prophylactic dose Lovenox pending decision regarding therapeutic anticoagulation. SCD for now
Code Status: Full
Anticipated Discharge: Today
Subjective/Interval History
-
Date of Service: August 21, 2024
Patient seen and examined at bedside, denies any chest pain or shortness of breath, no abdominal pain, no nausea, no vomiting, no diarrhea or constipation.
Seen by oncology today, plan to follow-up as outpatient.
Objective Data
-
Labs:
Laboratory Results
08/21/24
07:50
WBC 5.0
Hgb 13.6
Hct 37.6 L
Plt Count 116 L
Sodium 136
Potassium 4.1
Chloride 100
Carbon Dioxide 27
BUN 18
Creatinine 1.2
Glucose 124 H
Calcium 8.5
Total Bilirubin 2.5 H
AST 41
ALT 47
Alkaline Phosphatase 142 H
Vital Signs:
Vital Signs
Temp Pulse Resp BP Pulse Ox
98.5 F 77 16 128/70 96
08/21/24 11:15 08/21/24 11:15 08/21/24 11:15 08/21/24 11:15 08/21/24 11:15
I&O
08/20/24 08/21/24 08/22/24
06:59 06:59 06:59
Intake Total 2240 / 2240 4020 / 4020 50 / 50
Output Total 500 / 500
Balance 1740 / 1740 4020 / 4020 50 / 50
Physical Exam
-
General: Well Developed, Well Nourished, No Apparent Distress and Comfortable
HEENT: Normocephalic, Atraumatic and Moist Mucous Membranes; Negative Good Dentition
Respiratory: Clear to Auscultation
Cardiac: Regular Rhythm and S1/S2
GI: Soft, Nondistended and Tender
Musculoskeletal: No Clubbing, No Cyanosis and No Edema
Skin: Warm and Dry; Negative Rash
Neuro: Awake, Alert, Oriented and AO x 3
Psych: Calm
--- NOTE | 2024-08-21 14:11 | W.DCSUMMARY ---
Discharge Summary
Discharge Data
Date of Admission: 08/19/24
Date of Discharge: 08/21/24
-
Pending Results: No
Hospital Course
59y M with PMH significant for Hep C and cirrhosis who presents to ED complaining of abdominal pain.
1. Abdominal Pain - improved with pain meds initially, much better today
- Etiology of abdominal pain is likely cancer. MRI report:
Cirrhotic morphology. There is a large, infiltrative heterogeneous mass involving the anterior right hepatic lobe favored to represent infiltrative HCC.
There is tumor thrombus within the distal main portal vein extending into the left portal vein where it appears occlusive as well as the right main portal vein.
Findings of acute cholecystitis with a large gallstone in the gallbladder neck. There is no evidence of choledocholithiasis.
Prominent upper abdominal lymph nodes with the largest being a 1.3 cm portacaval lymph node.
These may be reactive to the above-described acute cholecystitis, though malignant nodes cannot be excluded.
-Appreciate GI/oncology input
2. Possible Acute Calculous Cholecystitis, but more likely this pain is from cancer.
- Large gallstone that has been present x years and is known to patient.
- Seen here on CT in 2020.
- Now with wall thickening and pericholecystic fluid.
- See above issue with tumor.
3. History of Hep C s/p Treatment, with Cirrhosis with Thrombocytopenia, now with probable Portal Vein Thrombosis
- Long history of cirrhosis that he elected not to follow up.
- CT done today with evidence of filling defect c/w portal vein thrombosis.
- IV PPI BID.
- again Encourage complete cessation of alcohol - as well as other illicit substances.
4. Polysubstance Use Disorder
- Patient reports prior h/o IVDA / cocaine / others.
- Most recently used 'speed' - states last use was about 2 weeks ago.
- Check UDS (already received Dilaudid here). pending
- Encourage complete cessation of illicit substance use.
DVT Prophylaxis: Prophylactic dose Lovenox pending decision regarding therapeutic anticoagulation. SCD for now
Code Status: Full
Anticipated Discharge: Today
Discharge Plan
-
Patient Disposition: Home (Routine Discharge)
Discharge Diagnosis/Procedures: Liver mass, rule out hepatocellular carcinoma
Liver cirrhosis
Condition: Good
Diet: No restrictions
Activity: No restrictions
Driving Restrictions: As prior to admission
Referrals:
Raheel Waldron DO [Active] - in one to two weeks
Constantin Cunningham MD [Family Provider] -
Nemesio Dukes MD [Active] - in one week
Prescriptions:
New
pantoprazole 40 mg Tablet,Delayed Release (Dr/Ec)
40 mg PO DAILY Qty: 30 0RF
ketorolac 10 mg tablet
10 mg PO Q8H PRN (Reason: Pain) 1 Days Qty: 30 0RF
Discharge Orders:
Discharge Patient (As Directed); Ordered 08/21/24
Ordered By: Amna Briceno
Discharge Date and Time
Print Language: ICELANDIC
--- NOTE | 2024-08-21 14:17 | CM ---
Met with patient to obtain information for assessment. Patient stated that he lives with his girlfriend in a one story home with ramp access. He described himself as independent with his ADLs, personal care, dressing and bathing. He can do household
chores, cook, clean and do laundry. Patient does not drive but his sister is available to take to appointments and assist with shopping.
Patient denied any DME.
He has never had VN.
He has not been to a SNF.
Patient has a prescription plan and uses, [facility] in [place] for all of his medications.
His provider is, Nell Dukes.
Patient stated that he is functionally at his baseline and would like to return home when stable.
Plan: Case management will continue to follow and assist with discharge planning. Home.
[2024-08-21 14:23] VITALS: BP 126/77
--- NOTE | 2024-08-21 14:57 | CM ---
Met with patient to obtain information for assessment. Patient stated that he lives with his girlfriend in a one story home with ramp access. He described himself as independent with his ADLs, personal care, dressing and bathing. He can do household
chores, cook, clean and do laundry. Patient does not drive but his sister is available to take to appointments and assist with shopping.
Patient denied any DME.
He has never had VN.
He has not been to a SNF.
Patient has a prescription plan and uses, [facility] in [place] for all of his medications.
His provider is, Nell Dukes.
Patient stated that he is functionally at his baseline and would like to return home when stable.
Plan: Case management will continue to follow and assist with discharge planning. Home.
Initialized on 08/21/24 14:17 - END OF NOTE
--- NOTE | 2024-08-21 15:19 | W.PN.GI.CBS2 ---
Today's Communication / Plan
-
ok for discharge. ANy significant fever, chills, abdominal pain come back to ER for possible cholecystostomy
will see Dr. Waldron and myself after discharge. We will call him with an appt
Assessment / Plan
-
Adán is a 59-year-old male with history of hep C with questionable SVR/IV drug abuse, untreated bipolar disease who has not seen a physician in over 10 years and is not on any prescriptions outpatient who comes in for persistent right upper
quadrant pain that radiated into his back with imaging concerning for cholecystitis with normal ALT AST with elevated total bilirubin of 2.8 found to have a large likely HCC lesion in the right anterior hepatic lobe with surrounding portal vein
thrombosis and an enlarged lymph node with a high AFP who is currently asymptomatic and hungry
1. Suspected HCC lesion in the setting of cirrhosis and high AFP (>1800) with surrounding portal vein thrombosis
-- Medical oncology evaluation - i spoke with Dr. Waldron who will see him outpatient as well. After I hear about tumor board results, I will contact the patient. His cell is [phone]
-- I did speak to Dr. hPilip, transplant hepatology at [facility] who will present him to tumor board next week
-- Tumor thrombus does not need treatment with anticoagulation
-- DVT prophylaxis
2. Suspected acute cholecystitis
-- Patient seen by general surgery who suggested low-fat diet. Which I ordered and patient is tolerating well. No abdominal pain today
-- Patient is relatively asymptomatic. Only tender with deep palpation
-- Per surgery's note if he needed surgery it would need to go to an academic center in the setting of his cirrhosis and large hepatic mass
-- He did not have a leukocytosis and his LFTs are normal other than his total bilirubin which is majority indirect
-- if patient has any worsening of abdominal pain, fever, chills, etc he needs to come back to the ER as he may need a cholecystostomy for decompression
Subjective
Subjective
Date of Service: August 21, 2024
Patient's abdominal pain has resolved.
Objective
Data Reviewed
Laboratory Data:
Laboratory Results
08/21/24 07:50
08/21/24 07:50
Laboratory Results
PT 15.1 Sec (11.4-14.6) H 08/20/24 06:04
INR 1.13 08/20/24 06:04
APTT 34.4 Sec (23.4-35.0) 08/19/24 11:06
Total Bilirubin 2.5 mg/dl (0.2-1.3) H 08/21/24 07:50
AST 41 U/L (17-59) 08/21/24 07:50
ALT 47 U/L (0-50) 08/21/24 07:50
Alkaline Phosphatase 142 U/L (38-126) H 08/21/24 07:50
Lipase 46 U/L (23-300) 08/19/24 00:03
Vital Signs and I&O:
Vital Signs
Temp Pulse Resp BP Pulse Ox
97.9 F 77 18 126/77 96
08/21/24 14:23 08/21/24 14:23 08/21/24 14:23 08/21/24 14:23 08/21/24 14:23
I&O
08/20/24 08/21/24 08/22/24
06:59 06:59 06:59
Intake Total 2240 / 2240 4020 / 4020 800 / 800
Output Total 500 / 500
Balance 1740 / 1740 4020 / 4020 800 / 800
Physical Exam
Physical Exam
HEENT: Other (mildly icteric)
GI: Non Distended and Non Tender
Extremities: No Edema
Neuro: Non Focal
[2024-08-22 15:36] LABS: HCV Quant by NAAT IU/mL Not Detected; HCV Quant by NAAT Interp Not Detected (Not Detected); HCV Quant by NAAT Log IU/mL Not Detected log IU/mL
== END 2024-08-21 16:19 | disposition home or self-care (01) | DRG 435 ==
LOC: 3 WEST ACU 04:38
PROVIDERS: Internal Medicine; Student in an Organized Health Care Education/Training Program; ADMITTING PHYSICIAN Hospitalist; ATTENDING PHYSICIAN General Practice; EMERGENCY PHYSICIAN Emergency Medicine; FAMILY PHYSICIAN Family Medicine; OTHER PHYSICIAN Internal Medicine Gastroenterology; OTHER PHYSICIAN Internal Medicine Hematology & Oncology; OTHER PHYSICIAN Surgery
DX: C22.0 Liver cell carcinoma (principal); I81 Portal vein thrombosis; K80.00 Calculus of gallbladder with acute cholecystitis without obstruction; F31.9 Bipolar disorder, unspecified; F19.10 Other psychoactive substance abuse, uncomplicated; F17.200 Nicotine dependence, unspecified, uncomplicated; E86.0 Dehydration; D69.6 Thrombocytopenia, unspecified; K74.60 Unspecified cirrhosis of liver; Z86.19 Personal history of other infectious and parasitic diseases
CPT/HCPCS: 70030; 74177; 74183; 80053; 80306; 80307; 81003; 82040; 82105; 82248; 83690; 85025; 85027; 85610; 85730; 86803; 87522; 93005; 96361; 96374; 96375; 99285; 99406; A9581; Q9967

== ENCOUNTER 2024-10-15 13:10 | Inpatient (IN) | payer OTHER, SELFPAY ==
[2024-10-15] VITALS (16 sets, daily range): BP systolic 15–144; BP diastolic 59–95; BMI 27.9
--- NOTE | 2024-10-15 08:07 | EDRN ---
Pt laying on floor in [place], This RN addressed patient to assist patient off the floor. Pt refusing to move from floor stating ' You all Fandria suck' and 'I can't get off the floor'. Security with this RN and patient continued to curse and refuse to
get off floor. Pt aggreed to get up only if this RN would pick him up. This RN told patient she would help assist him off the floor and assisted patient to wheelchair, pt stood with minimal assist by this RN and was able to sit in wheelchair. Pt
moved to large chair in WR. Pt informed that he is the first patient to go back when a room becomes available. Pt again cursed at RN. Pt offered blanket and socks for comfort, pt declined.
[2024-10-15] MEDS: MORPHINE SULFATE 4 MG IV (08:48)
[2024-10-15] MEDS: PROTONIX IV 80 MG IV (08:48)
[2024-10-15] MEDS: NSS 1000 IV (08:48)
[2024-10-15] MEDS: ZOFRAN 4 MG IV (08:49)
[2024-10-15 08:56] LABS: INR 1.16; PT 15.3 Sec (11.4-14.6)
--- NOTE | 2024-10-15 08:56 | ED.GENMED ---
History of Present Illness
General
Chief Complaint: Abdominal Pain
Source: patient
Exam Limitations: none
Time Seen by Provider: 10/15/24 08:07
Nursing documentation reviewed up to this point in time: agreed with
History of Present Illness
History of Present Illness:
59-year-old male past medical history of cirrhosis, presenting to the emergency department today with concerns of diffuse abdominal pain with associated nausea vomiting also vomiting up some blood this morning as well as dark stool this morning.
Otherwise felt well yesterday. Denies significant GI bleeds in the past. Denies chest pain or shortness of breath.
Past History
Past History
ED Past Medical History: Psychiatric (Bipolar, ) and Other (Hep C, Renal calculus, Cirrhosis of the liver)
ED Past Surgical History: None
Social History
Tobacco: Smoker
Alcohol: None
Drug: Other (Amphetamines)
Personal: Single
Living: with family
Review of Systems
Review of Systems
Allergies reviewed?: Yes
All Other Systems: ROS reviewed and negative except as documented in HPI and ROS
Phy Exam
Physical Exam
Physical Exam:
GENERAL: Alert , in no apparent distress
EYE: pupils equal and reactive
NECK: Supple, no significant adenopathy.
ENT: o/p clr, mmm.
CARDIAC: Regular rate and rhythm .
LUNGS: Clear breath sounds bilaterally, no acute respiratory distress, no wheezes/rales/rhonchi
ABDOMEN: Rectal examination with black stool guaiac positive, vague abdominal pain throughout the abdomen
NEUROLOGICAL: Alert and oriented, no focal neuro deficits
SKIN: Warm and dry, skin intact.
MUSCULOSKELETAL: No edema, well perfused.
PSYCH: Normal and appropriate interaction.
Course
Orders/Labs/Results
Orders:
Orders
10/15/24 07:03
Ondansetron Injectable [Zofran] 4 mg .ROUTE .[facility] ONE
10/15/24 08:36
Electrocardiogram (*1) Stat
Reason for Study: Other
Other Reason for Exam: GI Bleed
CT Abd/Pel (IV only)-DH only Urgent
Comment:
Reason For Exam: abd pain vomiting
Cardiac Monitoring- Treatment ONCE
EKG- Treatment ONCE
IV Insert/Care/Rem.- Treatment PRN
Pantoprazole [Protonix IV] 80 mg IV NOW STA
10/15/24 08:37
0.9% Sodium Chloride 1000 ml [Nss] 1,000 ml IV BOLUS
10/15/24 08:38
Urinalysis Reflex To Culture Urgent
Morphine Sulfate 4 mg IV NOW STA
Ondansetron Injectable [Zofran] 4 mg IV NOW STA
10/15/24 08:39
Type+Screen Urgent
Complete Blood Count/With Diff Urgent
Comprehensive Metabolic Panel Urgent
Lipase Urgent
PTT Urgent
Prothrombin Time Urgent
10/15/24 08:45
ABO2 Routine
BBK Wristband Number:
Associate notified that ABO2 has been ordered: [id number]
Date: 10/15/24
Time: 08:46
Conditioner Tumbler Operator ID: [id number]
10/15/24 09:10
IV Insert/Care/Rem.- Treatment PRN
CefTRIAXone [Rocephin] 1,000 mg IV NOW STA
10/15/24 10:32
Consult Gastroenterology [GASTROINTESTINAL CONSULT] Urgent
Consulting Provider: Tata Crockett
Was physician already notified: Yes
Consult Surgery [SURGICAL CONSULT] Urgent
Consulting Provider: John Pantoja
Was physician already notified: Yes
Abnormal Lab Results
10/15/24
08:39
RBC 3.84 L 10^6/uL
(4.70-6.10)
Hgb 11.9 L g/dL
(13.0-18.0)
Hct 35.6 L %
(39.0-52.0)
Absolute Lymphs (auto) 0.5 L 10^3/uL
(1.2-3.4)
Neutrophils % 81.8 H %
(42.2-75.2)
Lymphocytes % 10.2 L %
(20.5-51.1)
PT 15.3 H Sec
(11.4-14.6)
BUN 56 H mg/dl
(9-20)
Glucose 150 H mg/dl
(70-99)
Total Bilirubin 1.5 H mg/dl
(0.2-1.3)
AST 98 H U/L
(17-59)
ALT 61 H U/L
(0-50)
10/15/24 08:39
10/15/24 08:39
Vital Signs
Initial and Last Documented VS:
Initial Vital Signs
Temp Pulse Resp BP Pulse Ox
98.7 F 70 18 120/70 98
10/15/24 06:59 10/15/24 06:59 10/15/24 06:59 10/15/24 06:59 10/15/24 06:59
Last Documented Vital Signs
Temp Pulse Resp BP Pulse Ox
98.7 F 66 20 124/72 97
10/15/24 06:59 10/15/24 09:02 10/15/24 09:02 10/15/24 09:02 10/15/24 09:02
MDM/Problems Addressed
MDM/Problems Addressed:
59-year-old male presenting to the emergency department today with concerns of diffuse abdominal pain associated nausea vomiting with blood in the vomitus as well as dark black stool. Patient started on Protonix plan to get a CT scan as well as
labs. Does have a history of cirrhosis. Vital signs here are normal labs obtained showing hemoglobin 11.9 which is a drop of roughly 2 in the past month and a half. BUN is elevated to 56. Patient was given significant fluids. Blood consent
placed in the chart but not given a unit of blood at this point. No vomiting while here was given Zofran to help with nausea. Patient was additionally given Protonix ceftriaxone. CT scan showing concerns for hepatocellular carcinoma. Also saw
findings of potential inflammation to the gallbladder with concerns of acute cholecystitis. Patient does have pain to the right upper quadrant on examination concerning this surgery was consulted for assess. Additionally GI consulted and patient
admitted for further monitoring and treatment.
*Critical Care Note
Total Time (30-74mins, 75-104mins- exclusive of procedures): Not Applicable
ED Attending Note
-
Portions of this chart may have been created with voice recognition software.� Occasional wrong word or��sound alike� substitutions may have occurred due to the inherent limitations of voice recognition software.
Discharge Plan
Departure
Patient Disposition: Admit
Date of Disposition: 10/15/24
Time of Disposition: 10:35
Admit to: IMU
Admit to doctor: Ahmed
Presentation/result/management discussed w/ accepting MD/DO: Hospitalist
Patient with high blood pressure during this ER visit?: No
Condition: Fair
Covid-19: Not Applicable
Discharge Problem:
Acute GI bleeding, Portal vein thrombosis
Prescriptions:
No Action
pantoprazole 40 mg Tablet,Delayed Release (Dr/Ec)
40 mg PO DAILY Qty: 30 0RF
Referrals:
UNKNOWN - PT DOES,NOT KNOW [Family Provider] -
Interventions
Interventions:
*Risk Screen - Suicide Last Done: 10/15/24 06:59
*General Assessment Last Done: 10/15/24 06:59
*Neglect/Abuse Screening Last Done: 10/15/24 06:59
*ED COVID-19 Vaccine History Last Done: 10/15/24 08:35
EO-Pydgql-Daaelfjjsz Assessment Last Done: 10/15/24 09:27
Discharge Date and Time
Print Language: ITALIAN
[2024-10-15 08:57] LABS: APTT 24.7 Sec (23.4-35.0)
[2024-10-15 08:59] LABS: % Basophils 0.4 % (0-2); % Eosinophils 1.1 % (0-6); % Immature Granulocytes 0.4 % (0-0.5); % Lymphocytes 10.2 % (20.5-51.1); % Monocytes 6.1 % (1.7-9.3); % Neutrophils 81.8 % (42.2-75.2); Absolute Eosinophils 0.1 10^3/uL (0-0.7); Absolute Lymphocytes 0.5 10^3/uL (1.2-3.4); Absolute Monocytes 0.3 10^3/uL (0.1-0.6); Absolute Neutrophils 4.3 10^3/uL (1.4-6.5); Hematocrit 35.6 % (39.0-52.0); Hemoglobin 11.9 g/dL (13.0-18.0); Mean Corp Hgb Conc. 33.4 g/dL (33.0-37.0); Mean Corpuscular Volume 92.7 fL (80.0-94.0); Mean Platelet Volume 9.9 fL (7.4-10.4); Nucleated Red Blood Cells % 0 % (-); Platelet Count 141 10^3/uL (130-400); Red Blood Cell Count 3.84 10^6/uL (4.70-6.10); Red Cell Dist. Width 13.1 % (11.5-14.5); White Blood Cell Count 5.3 10^3/uL (4.8-10.8)
[2024-10-15 09:04] LABS: ALT (SGPT) 61 U/L (0-50); AST (SGOT) 98 U/L (17-59); Albumin 3.9 g/dl (3.5-5.0); Alkaline Phosphatase 124 U/L (38-126); Blood Urea Nitrogen 56 mg/dl (9-20); Calcium 9.2 mg/dl (8.4-10.2); Carbon Dioxide 24 mmol/L (22-30); Chloride 104 mmol/L (98-107); Estimated Creatinine Clearance 80 ml/min; Glucose 150 mg/dl (70-99); Sodium 137 mmol/L (135-145); Total Bilirubin 1.5 mg/dl (0.2-1.3); Total Protein 6.5 g/dl (6.3-8.2); eGFR > 60.00
[2024-10-15 09:53] LABS: Lipase 109 U/L (23-300)
--- NOTE | 2024-10-15 10:35 | CON.GI ---
Addendum entered and electronically signed by Tata Crockett MD 10/15/24 14:08:
I saw and examined the patient.
The CANDY VENDOR's note was reviewed and I agree with the note.
Comment: This is a 59-year-old male with past medical history of polysubstance abuse including prior history of IVDA and also uses marijuana and cocaine sometimes with amphetamines, hepatitis C and prior alcohol abuse with cirrhosis who states he
had been treated about 14 years ago with a pill and cleared the virus and did have hep C RNA checked during his prior admission in July which was not detected. he was initially here in July with symptoms of abdominal pain and at that time
was noted to have probable acute cholecystitis symptoms improved with antibiotic since he is high risk for surgery if symptoms recur he was told to follow-up at a tertiary center if he needed cholecystectomy. He also during that admission was noted
to have liver mass consistent with HCC with a elevated alpha-fetoprotein of 1810 with portal vein thrombosis which was thought to be tumor thrombus so anticoagulation was deferred and case was discussed with Dr. Philip and he does have a
follow-up appointment at [place] 11/13 and he was going to be discussed at their tumor board. He was also recommended an endoscopy to rule out esophageal varices during his prior admission but he had refused. he now presents with symptoms of abdominal
pain with nausea vomiting hematemesis and melena. Hemoglobin at admission was 11.9.
Assessment and plan 1. Melena with hematemesis most likely related to possible esophageal or gastric varices vs portal gastropathy or PUD currently hemodynamically stable he is been started on octreotide drip and Protonix drip and also received
antibiotics. Will schedule him for emergent endoscopy.
History of hep C and alcohol cirrhosis status post treatment for hep C in the past as described below in July 2024 during his prior admission we did repeat a HCV RNA was not detected
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 Philip on 11/13 and he was going to discuss him at tumor board also.
Original Note:
Consultation
-
Date/Time Consultation Requested: 10/15/24 1030
Date/Time Consultation Performed: 10/15/24 1035
Requesting Provider: Luca Hess PA-C
Performing Provider: ABBY Flores, Tata Crockett MD
Reason for Consultation: GI bleed
Medical History
Chief Complaint / HPI
Chief Complaint: abdpminal pain
History of Present Illness:
This is a 59-year-old male with past medical history of hepatitis C with cirrhosis status post treatment about 14 years ago 'with a pill he took for about 30 days' he had refused interferon then, h/o ETOH abuse years ago has cut back significantly
over the past couple of years he still has occasional beer or wine, h/o IVDA last used about 20 years ago, uses marijuana occasionally - grown in his home, prior amphetamines and cocaine, kidney stone, family history of gastric cancer (father and
sister) with admission in July with abdominal pain. During admission noted with AFP 1810 and imaging with cirrhosis of liver with concern for large infiltrative mass right hepatic lobe with concern for HCC. There was noted tumor thrombus within
distal main portal vein extending into left portal vein where is appeared to be occlusive as well as right main portal vein. Also noted acute cholecystitis with large stone in GB neck and no choledocholithiasis with enlarged nodes. Plan was
discussed with Dr. Philip and was to present to [place] tumor board. Pt was seen in GI follow up 10/09 and noted due for follow up at [place] 11/13. Pt now presents today with abdominal pain and vomiting blood. He reports vomiting 2 episode of bright
red blood about 1 cup and black stools with dizziness prior to admission.
Pt otherwise denies GERD, diarrhea, constipation or prior rectal bleeding. No hx EGD or colonoscopy in past. Denies NSAID use and no home medications. On admission labs with hbg 11.9, BUN 56, bili 1.5, AST 98, ALT 61, alk phos 124, glucose 150,
INR 1.16.
Past Medical History
Past Medical History: Other (Hepatitis C with Cirrhosis, HCC, Multiple Injuries / Traumas, h/o ETOH abuse, h/o IVDA, uses marijuana and amphetamines and cocaine sometimes, kidney stone)
Past Surgical History: Other (Facial Reconstruction, RLE Surgery)
Social History
Tobacco: Smoker (cut back to 2 cig per day )
Alcohol: Other (h/o ETOH abuse he says he has cut back significantly over the past couple of years he still has an occasional beer or wine)
Drug: Former User, Marijuana, IVDA (former use last used 20 years ago) and Other (amphetamine use per prior H + P but now denies use )
Living: Alone
Employment: Disabled (for bipolar disorder )
Family History
Family History: Other (father and sister stomach cancer)
Allergies / Home Medications
Allergy/AdvReac Type Severity Reaction Status Date / Time
No Known Allergies Allergy Verified 10/15/24 06:59
�Medication �Instructions �Recorded
pantoprazole 40 mg tablet,delayed 40 mg PO DAILY #30 tabs 08/21/24
release
Review of Systems
-
History Source: Patient
Constitutional: Reports No Symptoms
EENT: Reports No Symptoms
Respiratory: Reports No Symptoms
Cardiac: Reports No Symptoms
Abdomen/GI: Reports Nausea and Vomiting (with hematemesis )
: Reports No Symptoms
Neurological: Reports Dizzy and Weakness
Endocrine: Reports No Symptoms
Hematologic/Lymphatic: Reports Bleeding
Vital Signs
Temp Pulse Resp BP Pulse Ox
98.7 F 66 20 124/72 97
10/15/24 06:59 10/15/24 09:02 10/15/24 09:02 10/15/24 09:02 10/15/24 09:02
Physical Exam
Exam
General: Well Developed, Well Nourished and No Apparent Distress
HEENT: Normocephalic
Respiratory: Clear
Cardiac: Regular Rhythm
GI: Soft, Non Distended and Tender (minimal epigastric tenderness )
Musculoskeletal: No Clubbing and No Cyanosis
Skin: Warm and Dry
Neuro: Awake, Alert and AO x 3
Psych: Calm
Results
WBC 5.3 10^3/uL (4.8-10.8) 10/15/24 08:39
Hgb 11.9 g/dL (13.0-18.0) L 10/15/24 08:39
Hct 35.6 % (39.0-52.0) L 10/15/24 08:39
MCV 92.7 fL (80.0-94.0) 10/15/24 08:39
Plt Count 141 10^3/uL (130-400) 10/15/24 08:39
Absolute Neuts (auto) 4.3 10^3/uL (1.4-6.5) 10/15/24 08:39
PT 15.3 Sec (11.4-14.6) H 10/15/24 08:39
INR 1.16 10/15/24 08:39
APTT 24.7 Sec (23.4-35.0) 10/15/24 08:39
Sodium 137 mmol/L (135-145) 10/15/24 08:39
Potassium 5.0 mmol/L (3.5-5.1) 10/15/24 08:39
Chloride 104 mmol/L (98-107) 10/15/24 08:39
Carbon Dioxide 24 mmol/L (22-30) 10/15/24 08:39
BUN 56 mg/dl (9-20) H 10/15/24 08:39
Creatinine 1.0 mg/dL (0.7-1.3) 10/15/24 08:39
Calcium 9.2 mg/dl (8.4-10.2) 10/15/24 08:39
Total Bilirubin 1.5 mg/dl (0.2-1.3) H 10/15/24 08:39
AST 98 U/L (17-59) H 10/15/24 08:39
ALT 61 U/L (0-50) H 10/15/24 08:39
Alkaline Phosphatase 124 U/L (38-126) 10/15/24 08:39
Lipase 109 U/L (23-300) 10/15/24 08:39
Diagnostic Image Results:
08/19/24 CT Abd/pelvis W Iv Cont
IMPRESSION:
1).There is an approximately 9 cm heterogeneous area of enhancement bridging the right and left lobes of the liver which may be cirrhotic, however, this area is worrisome for hepatocellular carcinoma. MRI is recommended for further evaluation.
2). There is thrombus in the main and left portal veins
3). There is a low-density tubular structure in the medial aspect of the right lobe liver which favors dilated biliary ducts suggesting central obstruction which could also be further evaluated with MRI
4). There is a nodular subcapsular contour to the liver suggesting cirrhotic changes despite hepatomegaly
5). There is cholelithiasis with mild hazy thickening of the gallbladder wall suggesting possible cholecystitis
08/19/24 MR Abdomen W/o & W Contrast
Cirrhotic morphology. There is a large, infiltrative heterogeneous mass involving the anterior right hepatic lobe favored to represent infiltrative HCC. There is tumor thrombus within the distal main portal vein extending into the left portal vein
where it appears occlusive as well as the right main portal vein.
Findings of acute cholecystitis with a large gallstone in the gallbladder neck. There is no evidence of choledocholithiasis.
Prominent upper abdominal lymph nodes with the largest being a 1.3 cm portacaval lymph node. These may be reactive to the above-described acute cholecystitis, though malignant nodes cannot be excluded.
Splenomegaly.
Findings are consistent with LIRADS-TIV
Prior GI Procedures:
EGD: none
Colonoscopy: none
Assessment / Plan
-
This is a 59-year-old male with past medical history of hepatitis C with cirrhosis status post treatment about 14 years ago 'with a pill he took for about 30 days' he had refused interferon then, h/o ETOH abuse years ago has cut back significantly
over the past couple of years he still has occasional beer or wine, h/o IVDA last used about 20 years ago, uses marijuana occasionally - grown in his home, prior amphetamines and cocaine, kidney stone, family history of gastric cancer (father and
sister) with admission in July with abdominal pain. During admission patient was noted with AFP 1810 and imaging cirrhosis of liver with concern for large infiltrative mass right hepatic lobe with concern for HCC. There was noted tumor thrombus
within distal main portal vein extending into left portal vein where is appeared to be occlusive as well as right main portal vein. Also noted acute cholecystitis with large stone in GB neck and no choledocholithiasis with enlarged nodes. Plan was
discussed with Dr. Philip and was to present to [place] tumor board. Pt was seen in GI follow up 10/09 and noted due for follow up at [place] 11/13. Pt now presents today with abdominal pain and vomiting blood. He reports vomiting 2 episode of bright
red blood about 1 cup and black stools with dizziness prior to admission.
Pt otherwise denies GERD, diarrhea, constipation or prior rectal bleeding. No hx EGD or colonoscopy in past. Denies NSAID use and no home medications. On admission labs with hbg 11.9, BUN 56, bili 1.5, AST 98, ALT 61, alk phos 124, glucose 150,
INR 1.16.
-hematemesis/melena with concern for Upper GI bleed
-anemia
-hx hep C with treatment 14 years ago with pills declined interferon
-cirrhosis- mild LFT elevation
-liver mass concern for HCC with enlarged nodes with marked elevated AFP
-tumor thrombus/ PVT- s/p heme eval in July AC held
-cholelithiasis with GB neck stone on prior imaging
-hx hep C with prior partial treatment declined interferon
other med problems:
-family hx stomach CA
-prior ETOH use
-hx IVDA in past current occasional Marijuana use
-renal stones
PLAN:
etiology of bleeding related to esophageal/gastric varices with know cirrhosis, portal gastropathy, PUD, vs other
meld 9 on admission labs cont to trend labs
plan for EGD today
will give dose Reglan now prior to procedure
NPO
PPI gtt and add Octeotide gtt
cont abx with GI bleed in setting of cirrhosis
trend hbg
pt due follow up 11/13 at [place] to review with liver mass
-
-
Thank you for consultation and allowing me to participate in the patient's care. Please call the diesel mechanic construction GI physician during the after hours with any questions or concerns.
[2024-10-15] MEDS: ROCEPHIN 1000 MG IV (11:45)
[2024-10-15] MEDS: REGLAN 10 MG IV (11:46)
[2024-10-15] MEDS: PROTONIX 100 IV ×2 (12:24→22:15)
[2024-10-15] MEDS: SANDOSTATIN 500.6 MCG IV ×2 (12:30→23:30)
--- NOTE | 2024-10-15 12:39 | HPS.HSE ---
Family Physician
-
Family Physician: NOT KNOW UNKNOWN - PT DOES
Chief Complaint
-
GI bleed
History of Present Illness
59 y/o M hx of hep C, Cirrhosis s/p transplant, HCC (followed at [facility]), prior hx of ETOH and IVDA hx presenting to ER with abd pain and vomiting blood. Reports vomiting 2 episodes of bright red blood (about 1 cup) and black stools with dizziness. No
lower GI bleed. No other complaints.
in ER, Hb nearly 2 grams lower than baseline. Patient admitted for evaluation from GI.
Noted prior hospitalization which showed R hepatic mass concerning for HCC along with main portal vein thrombus.
Medical History
Past Medical History
Past Medical History: Reports Other (hx of hep C, Cirrhosis s/p transplant, HCC (followed at [facility]), prior hx of ETOH and IVDA hx)
Past Surgical History: Reports Other (Facial Reconstruction, RLE Surgery))
Social History
Tobacco: Smoker (2 cigs/daily currently)
Alcohol: Occasional
Drug: Former User
Living: With Family
Employment: Disabled (reports hx of bipolar disorder)
Family History
Family History: Not pertinent
Allergies / Home Medications
Allergies reflects when Allergies were last updated in [facility].
Home Medications with original date entered in [facility]
Allergy/Medication List:
Allergies
Allergy/AdvReac Type Severity Reaction Status Date / Time
No Known Allergies Allergy Verified 10/15/24 06:59
Home Medications
pantoprazole 40 mg tablet,delayed release 40 mg PO DAILY #30 tabs 08/21/24
Review of Systems
-
A 12 point ROS was completed and negative except as noted: Yes
Physical Exam
Vital Signs
Vital Signs
Temp Pulse Resp BP Pulse Ox
98.7 F 62 12 124/72 99
10/15/24 06:59 10/15/24 09:30 10/15/24 09:30 10/15/24 09:02 10/15/24 09:30
Physical Exam
General: Well Developed, Well Nourished and No Apparent Distress
HEENT: NormoCephalic
Respiratory: Clear; No Wheezes
Cardiac: S1/S2 and Regular Rhythm
GI: Tender (mild)
Neuro: AO x 3
Psych: Calm
Laboratory Results
-
10/15/24 08:39
10/15/24 08:39
Laboratory Results
PT 15.3 Sec (11.4-14.6) H 10/15/24 08:39
INR 1.16 10/15/24 08:39
APTT 24.7 Sec (23.4-35.0) 10/15/24 08:39
Total Bilirubin 1.5 mg/dl (0.2-1.3) H 10/15/24 08:39
AST 98 U/L (17-59) H 10/15/24 08:39
ALT 61 U/L (0-50) H 10/15/24 08:39
Alkaline Phosphatase 124 U/L (38-126) 10/15/24 08:39
Lipase 109 U/L (23-300) 10/15/24 08:39
Data Reviewed
-
Lab Data: Labs Reviewed by me
Impression/Plan
-
Assessment:
upper GI bleed with hematemesis
acute anemia (acute blood loss anemia) on chronic anemia
- type/screen/consented
- monitor Hb
- EGD today per GI
- continue PPI and Octreotide infusions
- continue Rocephin (GI bleed, hx of cirrhosis)
Liver cirrhosis
Liver mass concerning for HCC
tumor thrombus/ PVT
- no role for AC per prior GI notes
- followed with local hematology and [facility]
hx hep C with treatment 14 years ago
- treated with oral therapy; declined interferon
prior hx of ETOH and IVDA hx
cholelithiasis with GB neck stone on prior imaging
- GS evaluated; no impression of ACC currently
- no surgical intervention indicated
DVT ppx: SCDs due to active bleeding
Code: Full
--- NOTE | 2024-10-15 13:46 | CON.GS ---
Consultation
-
Requesting Provider: Deshawn
Performing Provider: Kit
Reason for Consultation: Abd pain
Medical History
-
Chief Complaint: Hematemesis
History of Present Illness:
59M who presents after an episode of hematemesis with BRB. He has a known hx of hepatic cirrhosis and liver mass, followed at [facility]. He also has chronic abd pain that waxes and wanes, localized to the RUQ. Admission 2.5 months ago with abd pain, when
hepatic lesion was dx'ed. His cirrhosis was dx'ed about 14 years ago. His pain is unchanged since then. He denies dark urine, endorses black stool. Also c/o dizziness.
Past Medical History
Past Medical History: Other (Hepatitis C with Cirrhosis, HCC, Multiple Injuries / Traumas, h/o ETOH abuse, h/o IVDA, uses marijuana and amphetamines and cocaine sometimes, kidney stone)
Past Surgical History: Other (Facial Reconstruction, RLE Surgery)
Social History
Tobacco: Non-Smoker
Alcohol: Occasional (former heavy drinker)
Drug: Former User, Marijuana and IVDA (hx)
Living: Alone
Family History
Family History: Other (dad and sister gastric CA)
Allergies / Home Medications
Allergy/AdvReac Type Severity Reaction Status Date / Time
No Known Allergies Allergy Verified 10/15/24 06:59
�Medication �Instructions �Recorded �Confirmed �Type
pantoprazole 40 mg tablet,delayed 40 mg PO DAILY #30 tabs 08/21/24 Rx
release
Review of Systems
-
A 10 point review of systems was completed, and was negative except as per HPI.
Physical Exam
Vital Signs
Temp Pulse Resp BP Pulse Ox
98.7 F 84 14 144/95 100
10/15/24 06:59 10/15/24 13:32 10/15/24 13:32 10/15/24 13:32 10/15/24 13:30
10/14/24 10/15/24 10/16/24
06:59 06:59 06:59
Actual Weight 85.7 kg
Body Mass Index (BMI) 27.9
Lab Results
10/15/24 08:39
10/15/24 08:39
WBC 5.3 10^3/uL (4.8-10.8) 10/15/24 08:39
Hgb 11.9 g/dL (13.0-18.0) L 10/15/24 08:39
Hct 35.6 % (39.0-52.0) L 10/15/24 08:39
Plt Count 141 10^3/uL (130-400) 10/15/24 08:39
Abs Immat Gran (auto) 0.0 10^3/uL (0-0.05) 10/15/24 08:39
Neutrophils % 81.8 % (42.2-75.2) H 10/15/24 08:39
Physical Exam
General: No Apparent Distress
GI: Soft, Non Distended and Tender (very mid ttp to RUQ, neg murphys)
Skin: Warm and Dry
Neuro: AO x 3
Psych: Calm
Data Reviewed
-
CT Scan: Image Personally Visualized and interpreted, Report Reviewed by me, Discussed with Physician and Discussed with Patient
Labs: Labs Reviewed by me and Discussed with Patient
Assessment / Plan
-
59M with hematemesis in setting of cirrhosis, liver mass, cholelithiasis, chronic mild abd pain
AFVSS, neg murphys, chronic mild abd pain with mild ttp to ruq
No leukocytosis, left shift noted
LFTs mildly elevated
CT A/P with cirrhotic appearing liver with large liver mass, cholelithiasis, gb essentially unchanged from imaging in Dec
I do not suspect acute gb issue at this time, suspect variceal bleeding
Plan:
For EGD with GI
GB surgery is not recommended in setting of cirrhosis and liver mass
He has f/u next month with [facility] team with regard to his liver
Defer GIB mgmt to GI
No plans for surgical intervention
Pls call with ?s
--- NOTE | 2024-10-15 16:00 | PTCARENOTE ---
pt admitted to 2S 2118 from the PACU at 1500. pt arrived via stretcher and transferred to bed w/assist of 1. admission database and assessment completed as documented. pt oriented to room, call read, environment and plan of care with verbalized
understanding. care ongoing.
[2024-10-15 16:12] LABS: Urine Albumin Negative (Neg - Trace); Urine Bilirubin Negative (Negative); Urine Character Clear (Clear); Urine Color Yellow; Urine Glucose Negative (Negative); Urine Ketone 1+ (Negative); Urine Leukocyte Negative (Negative); Urine Nitrite Negative (Negative); Urine Occult Blood Negative (Negative); Urine Urobilinogen Negative (Neg - 1+)
[2024-10-15] MEDS: TYLENOL 650 MG PO (21:46)
[2024-10-16] MEDS: TYLENOL 650 MG PO (02:09)
--- NOTE | 2024-10-16 02:15 | PTCARENOTE ---
Pt requested a shower on , had anesthesia with procedure, no order to [facility], [facility] to [facility] why taking a shower was not a good idea at that time. Pt asked me at 19:35 I told him I would put in a request with the FACILITIES SPECIALIST via TT.
FACILITIES SPECIALIST came up to see pt and pt agreed not to get a shower. On 10/16 at 01:20 pt told tech he was in pain, I assessed his pain and he said it was a 40 on a scale of 0-10, I TT FACILITIES SPECIALIST for pain mgmt at 01:26, In the meantime pt took tele monitor off and got
into the shower. When pt came out of the shower he started becoming verbally abusive & yelling, a trino cade was called. Pt did calm down, but insisted his two IVs be replaced, denied pain after shower said the water often alleviates his pain at
home. Two new IVs were placed, Code Purple ended, pt went to sleep.
[2024-10-16 03:15] VITALS: BP 142/61
[2024-10-16 06:38] LABS: INR 1.13
[2024-10-16 06:55] LABS: Hemoglobin 10.8 g/dL (13.0-18.0); Mean Corp Hgb Conc. 33.8 g/dL (33.0-37.0); Mean Corpuscular Hgb 31.5 pg (27.0-31.0); Mean Corpuscular Volume 93.3 fL (80.0-94.0); Mean Platelet Volume 10.5 fL (7.4-10.4); Platelet Count 102 10^3/uL (130-400); Red Blood Cell Count 3.43 10^6/uL (4.70-6.10); White Blood Cell Count 4.2 10^3/uL (4.8-10.8)
[2024-10-16 07:00] LABS: ALT (SGPT) 172 U/L (0-50); AST (SGOT) 427 U/L (17-59); Albumin 3.9 g/dl (3.5-5.0); Alkaline Phosphatase 133 U/L (38-126); Blood Urea Nitrogen 31 mg/dl (9-20); Calcium 8.8 mg/dl (8.4-10.2); Carbon Dioxide 27 mmol/L (22-30); Chloride 104 mmol/L (98-107); Estimated Creatinine Clearance 72 ml/min; Glucose 142 mg/dl (70-99); Magnesium 2.1 mg/dl (1.6-2.3); Potassium 4.1 mmol/L (3.5-5.1); Sodium 139 mmol/L (135-145); Total Bilirubin 1.8 mg/dl (0.2-1.3); Total Protein 6.6 g/dl (6.3-8.2); eGFR > 60.00
[2024-10-16] MEDS: PROTONIX 100 IV (07:22)
--- NOTE | 2024-10-16 07:36 | W.PN.GI.CBS2 ---
Today's Communication / Plan
-
Advance to full liquids
Monitor hemoglobin
Started Coreg
Assessment / Plan
-
This is a 59-year-old male with past medical history of hepatitis C with cirrhosis status post treatment about 14 years ago 'with a pill he took for about 30 days' he had refused interferon then, h/o ETOH abuse years ago has cut back significantly
over the past couple of years he still has occasional beer or wine, h/o IVDA last used about 20 years ago, uses marijuana occasionally - grown in his home, prior amphetamines and cocaine, kidney stone, family history of gastric cancer (father and
sister) with admission in July with abdominal pain. During admission patient was noted with AFP 1810 and imaging cirrhosis of liver with concern for large infiltrative mass right hepatic lobe with concern for HCC. There was noted tumor thrombus
within distal main portal vein extending into left portal vein where is appeared to be occlusive as well as right main portal vein. Also noted acute cholecystitis with large stone in GB neck and no choledocholithiasis with enlarged nodes. Plan was
discussed with Dr. Philip and was to present to [place] tumor board. Pt was seen in GI follow up 10/09 and noted due for follow up at [place] 11/13. Pt now presents today with abdominal pain and vomiting blood. He reports vomiting 2 episode of bright
red blood about 1 cup and black stools with dizziness prior to admission.
Pt otherwise denies GERD, diarrhea, constipation or prior rectal bleeding. No hx EGD or colonoscopy in past. Denies NSAID use and no home medications. On admission labs with hbg 11.9, BUN 56, bili 1.5, AST 98, ALT 61, alk phos 124, glucose 150,
INR 1.16.
-hematemesis/melena with concern for Upper GI bleed
-anemia
-hx hep C with treatment 14 years ago with pills declined interferon- achieved SVR neg RNA 07/2024
-cirrhosis- mild LFT elevation
-liver mass concern for HCC with enlarged nodes with marked elevated AFP
-tumor thrombus/ PVT- s/p heme eval in July AC held
-cholelithiasis with GB neck stone on prior imaging
-hx hep C with prior partial treatment declined interferon
other med problems:
-family hx stomach CA
-prior ETOH use
-hx IVDA in past current occasional Marijuana use
-renal stones
PLAN:
Secondary to esophageal varices and portal gastropathy
Status post EGD 10/15 with banding of esophageal varices
Needs repeat endoscopy in 2 to 4 weeks for repeat banding if needed for complete eradication
Will start Coreg 6.25 mg daily increase in 3 days if tolerated to twice daily and monitor blood pressure to keep systolic greater than 90
Will advance diet
Can DC octreotide drip tomorrow
Will change Protonix to twice daily and DC drip
cont abx with GI bleed in setting of cirrhosis total 7 days
trend hbg
Tumor thrombus no indication for anticoagulation was seen by hematology during his prior admission and was also discussed with Dr. Philip during his prior admission
pt due follow up 11/13 at [place] to review with liver mass- HCC
Subjective
Subjective
Date of Service: October 16, 2024
He had a small bowel movement last night which was dark but none since then, complains of chronic abdominal pain no change from prior to admission
Objective
Data Reviewed
Laboratory Data:
Laboratory Results
10/16/24 05:57
10/16/24 05:57
Laboratory Results
PT 15.0 Sec (11.4-14.6) H 10/16/24 05:57
INR 1.13 10/16/24 05:57
APTT 24.7 Sec (23.4-35.0) 10/15/24 08:39
Phosphorus 3.0 mg/dl (2.5-4.5) 10/16/24 05:57
Magnesium 2.1 mg/dl (1.6-2.3) 10/16/24 05:57
Total Bilirubin 1.8 mg/dl (0.2-1.3) H 10/16/24 05:57
AST 427 U/L (17-59) H 10/16/24 05:57
ALT 172 U/L (0-50) H 10/16/24 05:57
Alkaline Phosphatase 133 U/L (38-126) H 10/16/24 05:57
Lipase 109 U/L (23-300) 10/15/24 08:39
Vital Signs and I&O:
Vital Signs
Temp Pulse Resp BP Pulse Ox
98.3 F 77 18 142/61 98
10/16/24 03:15 10/16/24 03:15 10/16/24 03:15 10/16/24 03:15 10/16/24 03:15
I&O
10/15/24 10/16/24 10/17/24
06:59 06:59 06:59
Intake Total 1531.8 / 1531.8
Output Total 725 / 725
Balance 806.8 / 806.8
10/15/24 EGD
Impression: - Grade III esophageal varices with stigmata of recent
bleeding. Completely eradicated. Banded.
- Portal hypertensive gastropathy.
- Hematin (altered blood/fesnrv-[id number] material)
in the gastric fundus.
- Normal examined duodenum.
- No specimens collected.
Physical Exam
Physical Exam
Cardiology: Normal Sinus Rhythm
Pulmonary: Clear
GI: Soft, Non Distended, Non Tender and Normal Bowel Sounds
[2024-10-16 08:56] VITALS: BP 131/75
--- NOTE | 2024-10-16 09:09 | W.PN.HOSP.TC ---
Today's Communication/Plan
-
monitor CBC. Monitor for clinical bleeding.
continue PPI, Octreotide, Rocephin
Assessment / Plan
Assessment / Plan
Assessment:
upper GI bleed with hematemesis
acute anemia (acute blood loss anemia) on chronic anemia
- type/screen/consented
- monitor Hb; 10.8 today
- Status post EGD 10/15 with banding of esophageal varices. repeat endoscopy in 2 to 4 weeks for repeat banding if needed for complete eradication
- continue PPI (switched to BID from drip)
- continue Octreotide infusions x 24 hours more
- continue Rocephin, day 09/26 (GI bleed, hx of cirrhosis)
- continue Coreg 6.25mg daily - can titrate to BID if tolerating
consumptive thrombocytopenia from acute GI bleed and cirrhosis
- monitor platelets
Liver cirrhosis
Elevated LFTs
- LFTs likely elevated related to low flow from GI bleed and HCC
- follow labs
Liver mass concerning for HCC
tumor thrombus/ PVT
- no role for AC per prior GI and hematology notes
- followed with local hematology and [facility]
hx hep C with treatment 14 years ago
- treated with oral therapy; declined interferon
prior hx of ETOH and IVDA hx
cholelithiasis with GB neck stone on prior imaging
- GS evaluated; no impression of ACC currently
- no surgical intervention indicated
DVT ppx: SCDs due to active bleeding; consider SC heparin tomorrow if no further bleeding and platelets stable
Code: Full
Anticipated Discharge: 24 - 48 hours
Subjective/Interval History
-
Date of Service: October 16, 2024
chronic abd pain
small dark BM last evening
Hb 10.8 this morning
Objective Data
-
Labs:
Laboratory Results
10/16/24
05:57
WBC 4.2 L
Hgb 10.8 L
Hct 32.0 L
Plt Count 102 L D
PT 15.0 H
INR 1.13
Sodium 139
Potassium 4.1
Chloride 104
Carbon Dioxide 27
BUN 31 H
Creatinine 1.1
Glucose 142 H
Calcium 8.8
Total Bilirubin 1.8 H
AST 427 H
ALT 172 H
Alkaline Phosphatase 133 H
Vital Signs:
Vital Signs
Temp Pulse Resp BP Pulse Ox
98.2 F 75 16 131/75 94
10/16/24 08:56 10/16/24 08:56 10/16/24 08:56 10/16/24 08:56 10/16/24 08:56
I&O
10/15/24 10/16/24 10/17/24
06:59 06:59 06:59
Intake Total 1531.8 / 1531.8
Output Total 725 / 725
Balance 806.8 / 806.8
Physical Exam
-
General: No Apparent Distress
HEENT: Normocephalic and Atraumatic
Respiratory: Clear to Auscultation; Negative Wheezes
Cardiac: Regular Rhythm and S1/S2
GI: Soft and Nontender
Neuro: AO x 3
Psych: Calm
Data Reviewed
-
Total Time Spent with Patient (in minutes): 45
Labs: Labs Reviewed by me
[2024-10-16] MEDS: COREG 3.125 MG PO ×2 (09:47→20:54)
[2024-10-16] MEDS: ULTRAM 25 MG PO ×2 (09:47→18:24)
[2024-10-16] MEDS: PROTONIX IV 40 MG IV ×2 (09:47→20:54)
[2024-10-16] MEDS: NSS (PRESERVATIVE FREE) 10 ML IV ×2 (09:47→20:54)
[2024-10-16] MEDS: STERILE WATER FOR INJECTION 10 ML IV (10:42)
[2024-10-16] MEDS: ROCEPHIN 1000 MG IV (10:42)
[2024-10-16 12:30] VITALS: BP 107/51
--- NOTE | 2024-10-16 13:24 | CM ---
Reviewed the chart notes and spoke with the patient at the bedside. Patient resides alone, but his sister lives on the property and is his caregiver. The home is a two story home with one step to enter. The patient denies no DME/VN/SNF in the
past. The patient confirmed his pharmacy of choice is the [facility]. CM continues to be available to patient/family and is monitoring medical plan for needs at discharge.
Plan: Discharge to home when medically stable. No needs anticipated at this time.
[2024-10-16] MEDS: SANDOSTATIN 500.6 MCG IV (14:14)
[2024-10-16 19:20] VITALS: BP 133/77
--- NOTE | 2024-10-16 19:22 | PTCARENOTE ---
Patient was threatening to 'do the same thing he did last night 'at the beginning of the shift.He was unhappy because he did not have any pain medication ordered and he was insisting that he needed to have his gall bladder removed.Both Gi and the
attending spoke to the patient about this however he insists and was also threatening that he wanted to be transferred.He was ordered Tramadol 25mg which I gave him with good results.He calmed down and slept for a few hours.He asked me for a shower
this afternoon so I did let him take a quick shower.He was satisfied with that and continued to be cooperative for me the rest of the shift.He feels that the shower helps with his pain and becomes agitated the minute you challenge him.
[2024-10-16 23:35] VITALS: BP 121/68
[2024-10-17] MEDS: ULTRAM 25 MG PO ×2 (02:26→09:10)
[2024-10-17 03:32] VITALS: BP 122/61
[2024-10-17] MEDS: SANDOSTATIN 500.6 MCG IV (04:06)
[2024-10-17 08:11] VITALS: BP 129/62
[2024-10-17] MEDS: PROTONIX IV 40 MG IV (09:00)
[2024-10-17] MEDS: COREG 3.125 MG PO (09:01)
[2024-10-17] MEDS: NSS (PRESERVATIVE FREE) 10 ML IV (09:01)
[2024-10-17 09:18] LABS: Hematocrit 28.1 % (39.0-52.0); Hemoglobin 9.5 g/dL (13.0-18.0); Mean Corp Hgb Conc. 33.8 g/dL (33.0-37.0); Mean Corpuscular Hgb 31.1 pg (27.0-31.0); Mean Corpuscular Volume 92.1 fL (80.0-94.0); Red Blood Cell Count 3.05 10^6/uL (4.70-6.10); Red Cell Dist. Width 12.9 % (11.5-14.5)
--- NOTE | 2024-10-17 09:31 | W.PN.GI.CBS2 ---
Addendum entered and electronically signed by Sylvie Weber MD 10/17/24 17:13:
I saw and examined the patient.
The MOTION STUDY ENGINEER's note was reviewed and I agree with the note.
-Hematemesis and melena-> secondary to esophageal varices and portal gastropathy
-anemia
-hx hep C with treatment 14 years ago with pills declined interferon- achieved SVR neg RNA 07/2024
-cirrhosis- mild LFT elevation
-liver mass concern for HCC with enlarged nodes with marked elevated AFP
-tumor thrombus/ PVT- s/p heme eval in July AC held
-cholelithiasis with GB neck stone on prior imaging
-hx hep C with prior partial treatment declined interferon
plan
no further bleeding
ok to advance diet
repeat EGD in 2-4 weeks for variceal surveillance
complete antibiotics for 7 days
continue coreg as tolerated
follow up with GI/hepatology/ oncology for HCC as outpatient
Addendum entered and electronically signed by ABBY Martinez 10/17/24 16:07:
I discussed with patient's Sister Priscilla via telephone and updated her as far as discharge planning and discharge instructions. Medications and follow-up EGD variceal banding appointment. Advised on signs and symptoms for return to hospital.
Original Note:
Today's Communication / Plan
-
As per plan
Assessment / Plan
-
This is a 59-year-old male with past medical history of hepatitis C with cirrhosis status post treatment about 14 years ago 'with a pill he took for about 30 days' he had refused interferon then, h/o ETOH abuse years ago has cut back significantly
over the past couple of years he still has occasional beer or wine, h/o IVDA last used about 20 years ago, uses marijuana occasionally - grown in his home, prior amphetamines and cocaine, kidney stone, family history of gastric cancer (father and
sister) with admission in July with abdominal pain. During admission patient was noted with AFP 1810 and imaging cirrhosis of liver with concern for large infiltrative mass right hepatic lobe with concern for HCC. There was noted tumor thrombus
within distal main portal vein extending into left portal vein where is appeared to be occlusive as well as right main portal vein. Also noted acute cholecystitis with large stone in GB neck and no choledocholithiasis with enlarged nodes. Plan was
discussed with Dr. Philip and was to present to [facility] tumor board. Pt was seen in GI follow up 10/09 and noted due for follow up at [facility] 11/13. Pt now presents today with abdominal pain and vomiting blood. He reports vomiting 2 episode of bright
red blood about 1 cup and black stools with dizziness prior to admission.
Pt otherwise denies GERD, diarrhea, constipation or prior rectal bleeding. No hx EGD or colonoscopy in past. Denies NSAID use and no home medications. On admission labs with hbg 11.9, BUN 56, bili 1.5, AST 98, ALT 61, alk phos 124, glucose 150,
INR 1.16.
-Hematemesis and melena-> secondary to esophageal varices and portal gastropathy
-anemia
-hx hep C with treatment 14 years ago with pills declined interferon- achieved SVR neg RNA 07/2024
-cirrhosis- mild LFT elevation
-liver mass concern for HCC with enlarged nodes with marked elevated AFP
-tumor thrombus/ PVT- s/p heme eval in July AC held
-cholelithiasis with GB neck stone on prior imaging
-hx hep C with prior partial treatment declined interferon
other med problems:
-family hx stomach CA
-prior ETOH use
-hx IVDA in past current occasional Marijuana use
-renal stones
PLAN:
Secondary to esophageal varices and portal gastropathy
Status post EGD 10/15 with banding of esophageal varices
Repeat endoscopy with banding scheduled for 10/31/[address] Cisneros. Instructions given to patient. Will call his Sister Priscilla [phone] to update. As she was unavailable at the time of my visit with him. We tried to call.
Will start Coreg 6.25 mg daily increase in 3 days if tolerated to twice daily and monitor blood pressure to keep systolic greater than 90
Currently on clear liquids, will advance to full liquid
Continue pantoprazole 40 mg IV twice daily
Continue ceftriaxone 1 g daily for total of 7 days with GI bleed in setting of cirrhosis
trend hbg
Tumor thrombus no indication for anticoagulation was seen by hematology during his prior admission and was also discussed with Dr. Philip during his prior admission
pt due follow up 11/13 at [facility] to review with liver mass- HCC
Subjective
Subjective
Date of Service: October 17, 2024
Patient tolerating clear liquid diet. Still with mild right upper quadrant discomfort, chronic. No bowel movement since yesterday. Yesterday's bowel movement was dark. Hemoglobin currently 9.5 today down from 10.8. Patient status post EGD
10/15/2024 with grade 3 esophageal varices with stigmata of recent bleeding. Completely eradicated. Banded. Portal hypertensive gastropathy. Hematin tjafli-edzole-egoe material in gastric fundus. Normal duodenum. Patient started on Coreg 3.125
mg twice daily. Continues on pantoprazole 40 mg IV twice daily.
Objective
Data Reviewed
Laboratory Data:
Laboratory Results
10/17/24 08:49
Laboratory Results
PT 15.0 Sec (11.4-14.6) H 10/16/24 05:57
INR 1.13 10/16/24 05:57
APTT 24.7 Sec (23.4-35.0) 10/15/24 08:39
Phosphorus 3.0 mg/dl (2.5-4.5) 10/16/24 05:57
Magnesium 2.1 mg/dl (1.6-2.3) 10/16/24 05:57
Total Bilirubin 1.8 mg/dl (0.2-1.3) H 10/16/24 05:57
AST 427 U/L (17-59) H 10/16/24 05:57
ALT 172 U/L (0-50) H 10/16/24 05:57
Alkaline Phosphatase 133 U/L (38-126) H 10/16/24 05:57
Lipase 109 U/L (23-300) 10/15/24 08:39
Vital Signs and I&O:
Vital Signs
Temp Pulse Resp BP Pulse Ox
98.7 F 77 18 129/62 95
10/17/24 08:11 10/17/24 08:11 10/17/24 08:11 10/17/24 08:11 10/17/24 08:11
I&O
10/16/24 10/17/24 10/18/24
06:59 06:59 06:59
Intake Total 1531.8 / 1531.8 1553 / 1553
Output Total 725 / 725 400 / 400
Balance 806.8 / 806.8 1153 / 1153
Physical Exam
Physical Exam
HEENT: Anicteric
Cardiology: Normal Sinus Rhythm
Pulmonary: Clear
GI: Soft, Non Distended and Tender (Mild right upper quadrant discomfort on palpation, chronic)
Extremities: No Edema
Neuro: Non Focal
[2024-10-17 09:58] LABS: ALT (SGPT) 126 U/L (0-50); AST (SGOT) 194 U/L (17-59); Albumin 3.3 g/dl (3.5-5.0); Alkaline Phosphatase 131 U/L (38-126); Blood Urea Nitrogen 21 mg/dl (9-20); Calcium 8.4 mg/dl (8.4-10.2); Carbon Dioxide 27 mmol/L (22-30); Chloride 102 mmol/L (98-107); Estimated Creatinine Clearance 88 ml/min; Glucose 145 mg/dl (70-99); Sodium 135 mmol/L (135-145); Total Bilirubin 2.1 mg/dl (0.2-1.3); Total Protein 5.9 g/dl (6.3-8.2); eGFR > 60.00
[2024-10-17] MEDS: STERILE WATER FOR INJECTION 10 ML IV (09:59)
[2024-10-17] MEDS: ROCEPHIN 1000 MG IV (10:00)
--- NOTE | 2024-10-17 10:15 | CM ---
Reviewed the chart notes. Patient currently on full liquids. CM continues to be available to patient/family and is monitoring medical plan for needs at discharge.
Plan: Discharge to home when medically stable. No needs anticipated at this time.
[2024-10-17 10:35] LABS: Platelet Count 77 10^3/uL (130-400)
[2024-10-17 11:27] VITALS: BP 110/64
--- NOTE | 2024-10-17 13:59 | W.PN.HOSP.TC ---
Today's Communication/Plan
-
dc to home
Assessment / Plan
Assessment / Plan
Assessment:
upper GI bleed with hematemesis
acute anemia (acute blood loss anemia) on chronic anemia
- type/screen/consented
- monitor Hb; 9.5 today
- Status post EGD 10/15 with banding of esophageal varices. repeat endoscopy in 2 to 4 weeks for repeat banding if needed for complete eradication
- continue PPI BID
- completed 3 day Octreotide infusion
- dc on Cipro 500mg BID for 7 day SBP prophylaxis course
- continue Coreg 6.25mg BID
consumptive thrombocytopenia from acute GI bleed and cirrhosis
- monitor platelets
Liver cirrhosis
Elevated LFTs
- LFTs likely elevated related to low flow from GI bleed and HCC
- follow labs
Liver mass concerning for HCC
tumor thrombus/ PVT
- no role for AC per prior GI and hematology notes
- followed with local hematology and [facility]
hx hep C with treatment 14 years ago
- treated with oral therapy; declined interferon
prior hx of ETOH and IVDA hx
cholelithiasis with GB neck stone on prior imaging
- GS evaluated; no impression of ACC currently
- no surgical intervention indicated
DVT ppx: SCDs
Code: Full
Dispo: home dc with [facility] F/u. repeat labs in 1 week. slip given.
More than 30 minutes spent in discharge including
Final examination of the patient
Summarizing hospital stay
Instructions for continuing care to all relevant caregivers
Preparation of discharge records, prescriptions, and referral forms
Total time spent (in minutes):41
Anticipated Discharge: Today
Subjective/Interval History
-
Date of Service: October 17, 2024
no acute complaints
Hb 9.5
continues to demand gallbladder removal; but patient reminded of surgical evaluation which did not recommend removal
Objective Data
-
Labs:
Laboratory Results
10/17/24
08:49
WBC 4.0 L
Hgb 9.5 L
Hct 28.1 L
Plt Count 77 L D
Sodium 135
Potassium 4.0
Chloride 102
Carbon Dioxide 27
BUN 21 H
Creatinine 0.9
Glucose 145 H
Calcium 8.4
Total Bilirubin 2.1 H
AST 194 H
ALT 126 H
Alkaline Phosphatase 131 H
Vital Signs:
Vital Signs
Temp Pulse Resp BP Pulse Ox
98.4 F 77 18 110/64 95
10/17/24 11:27 10/17/24 11:27 10/17/24 11:27 10/17/24 11:27 10/17/24 11:27
I&O
10/16/24 10/17/24 10/18/24
06:59 06:59 06:59
Intake Total 1531.8 / 1531.8 1553 / 1553
Output Total 725 / 725 400 / 400
Balance 806.8 / 806.8 1153 / 1153
Physical Exam
-
General: No Apparent Distress
HEENT: Normocephalic and Atraumatic
Respiratory: Negative Wheezes
Cardiac: Regular Rhythm and S1/S2
GI: Soft
Genito-urinary: No Costovertebral Tender
Neuro: AO x 3
Psych: Calm
Data Reviewed
-
Total Time Spent with Patient (in minutes): 42
Labs: Labs Reviewed by me
--- NOTE | 2024-10-17 14:08 | W.DS.TRANS ---
DC Summary - Control Specialist
-
Discharge Instructions:
Discharge Diagnosis/Procedures acute blood loss anemia from acute GI s/p EGD
26 with variceal banding. hx of cirrhosis and
HCC
Diet Low Residue
Additional Diets avoid large veggies and meats
Activity As tolerated
Blood Work repeat labs in 1 week (blood work script given)
Others Tests EGD with variceal banding scheduled for 10/31/24,
GI suite will call with time.
Instructions:
Stand-Alone Forms:
Changes to Home Medications: No
Discharge Medications:
DC Medications w/original date entered in [employer]
carvedilol 3.125 mg tablet 3.125 mg PO BID #60 tabs 10/17/24
ciprofloxacin HCl 500 mg tablet (Cipro) 500 mg PO BID #10 tabs 10/17/24
pantoprazole 40 mg tablet,delayed release (Protonix) 40 mg PO BID #60 tabs 10/17/24
tramadol 50 mg tablet 25 mg (1/2 x 50 mg) PO Q6HPRN PRN moderate pain #20 tabs 10/17/24
Home Medication Changes
Pending Results: No
Total time spent discharging patient (in min): 42
--- NOTE | 2024-10-17 14:19 | W.DS.TRANS ---
DC Summary - Power Shovel Mechanic
-
Discharge Instructions:
Discharge Diagnosis/Procedures acute blood loss anemia from acute GI s/p EGD
26 with variceal banding. hx of cirrhosis and
HCC
Diet Low Residue
Additional Diets avoid large veggies and meats
Activity As tolerated
Blood Work repeat labs in 1 week (blood work script given)
Others Tests EGD with variceal banding scheduled for 10/31/24,
GI suite will call with time.
Instructions:
Stand-Alone Forms:
Changes to Home Medications: No
Discharge Medications:
DC Medications w/original date entered in [employer]
carvedilol 3.125 mg tablet 3.125 mg PO BID #60 tabs 10/17/24
ciprofloxacin HCl 500 mg tablet (Cipro) 500 mg PO BID #10 tabs 10/17/24
pantoprazole 40 mg tablet,delayed release (Protonix) 40 mg PO BID #60 tabs 10/17/24
tramadol 50 mg tablet 25 mg (1/2 x 50 mg) PO Q6HPRN PRN moderate pain #20 tabs 10/17/24
Home Medication Changes
Pending Results: No
Total time spent discharging patient (in min): 41
[2024-10-17 15:34] VITALS: BP 124/66
== END 2024-10-17 16:05 | disposition home or self-care (01) | DRG 441 ==
LOC: 2 SOUTH 13:10
PROVIDERS: Nurse Practitioner Adult Health; Physician Assistant; ADMITTING PHYSICIAN Internal Medicine; CONSULT PHYSICIAN Internal Medicine Gastroenterology; CONSULT PHYSICIAN Surgery; EMERGENCY PHYSICIAN Student in an Organized Health Care Education/Training Program
PROC: 06L38CZ Occlusion of Esophageal Vein with Extraluminal Device, Via Natural or Artificial Opening Endoscopic (ICD-10-PCS; 2024-10-15)
DX: T86.49 Other complications of liver transplant (principal); I81 Portal vein thrombosis; I85.11 Secondary esophageal varices with bleeding; D62 Acute posthemorrhagic anemia; C22.0 Liver cell carcinoma; K76.6 Portal hypertension; K74.60 Unspecified cirrhosis of liver; K31.89 Other diseases of stomach and duodenum; D69.59 Other secondary thrombocytopenia; F17.210 Nicotine dependence, cigarettes, uncomplicated; F31.9 Bipolar disorder, unspecified; Z86.19 Personal history of other infectious and parasitic diseases; Z80.0 Family history of malignant neoplasm of digestive organs
CPT/HCPCS: 74177; 80053; 81003; 83690; 83735; 84100; 85025; 85027; 85610; 85730; 86850; 86900; 86901; 87070; 93005; 96361; 96365; 96375; 99285; 99406; Q9967